=== PATIENT | male | born 1940 | race Caucasian/White ===

== ENCOUNTER 2017-12-05 12:44 | Observation (INO) | payer MEDICARE ==
[~2017-12-05] VITALS: Ht 167.6 cm; Wt 82.0 kg
[~2017-12-05 12:44] MED LIST: ASPI81 PO; BACT800T5 PO; BUME1TAB PO; CALC.25 PO; CVS20TAB PO; FISH1000 PO; METO50CR PO; PERC10TA27 PO; PERI8.6T PO; PRAV20 PO; PYRI50TA PO
--- NOTE | 2017-12-05 13:14 | PD ---
HPI Chief Complaint: syncope Time Seen by Provider: 12:47 Travel History International Travel<30 days: No Contact w/Intl Traveler<30days: No Traveled to known affect area: No History of Present Illness HPI 77-year-old male that presents to the ED for evaluation of syncope via EVAC. Patient apparently had a syncopal episode today. Per report I was given and by patient is been feeling dizzy for the past 3 weeks. He apparently had a syncopal episode today. He states that for the most part has been doing okay. She does have a history of cardiac disease having had a CABG in the past as well as a pacemaker. Patient apparently was trying to walk into his couch and all he remembers is waking up on the floor. Apparently family witnessed this and called the ambulance. Patient denies any chest pain or shortness of breath. He denies any symptoms at this time. States he is feeling weak. Per patient he is never had this before. Per patient he does take blood thinners. No history of CVA. He follows with division supervisor Dr. Suggs. Denies any symptoms at this time. No abdominal pain. No blurred vision or double vision. No pain. Patient denies any symptoms preloading to the syncopal episode. Has an allergy to contrast sodium. PFSH Past Medical History Hx Anticoagulant Therapy: Yes Arthritis: Yes Asthma: No Autoimmune Disease: No Blood Disorders: No Anxiety: No Depression: No Heart Rhythm Problems: Yes (PACEMAKER) Cancer: No Cardiovascular Problems: Yes (HTN/PACEMAKER/ TRIPLE BYPASS) High Cholesterol: Yes Chest Pain: No Congestive Heart Failure: Yes (Previously was diuresed outpatient with Lasix) COPD: No Cerebrovascular Accident: No Diabetes: No Diminished Hearing: No Endocrine: No GERD: No Genitourinary: Yes (BLADDER INFECTION/RETENTION) Hiatal Hernia: No Hypertension: Yes Immune Disorder: No Implanted Vascular Access Dvce: Yes Kidney Stones: No Musculoskeletal: Yes Neurologic: Yes Psychiatric: No Reproductive: No Respiratory: Yes (recent left PNA) Migraines: No Renal Failure: Yes (Recent ARF due to sepsis; US negative for hydronephrosis) Seizures: No Sickle Cell Disease: No Sleep Apnea: No Thyroid Disease: No Ulcer: No Past Surgical History Abdominal Surgery: No AICD: No Arteriovenous Shunt: No Cardiac Surgery: Yes (TRIPLE BYPASS, PACEMAKER) Ear Surgery: No Endocrine Surgery: No Eye Surgery: Yes (CATARACTS) Genitourinary Surgery: No Gynecologic Surgery: No Insulin Pump: No Joint Replacement: No Oral Surgery: No Pacemaker: Yes Thoracic Surgery: No Other Surgery: Yes (BLADDER SURGERY) Social History Alcohol Use: No Tobacco Use: No Substance Use: No Allergies-Medications (Allergen,Severity, Reaction): Coded Allergies: Iodinated Contrast- Oral and IV Dye (Unverified Allergy, Severe, nausea, ) iodine (Unverified Allergy, Severe, n/v, 12/05/17) potassium iodide (Unverified Allergy, Severe, n/v, 12/05/17) povidone-iodine (Unverified Allergy, Severe, n/v, 12/05/17) shrimp (Unverified Allergy, Severe, n/v, 12/05/17) sodium iodide (Unverified Allergy, Severe, n/v, 12/05/17) sodium iodide (Unverified Allergy, Severe, n/v, 12/05/17) Reported Meds & Prescriptions Reported Meds & Active Scripts Active Reported Metoprolol Tartrate 25 Mg Tab 75 Mg PO BID Tamsulosin (Tamsulosin HCl) 0.4 Mg Cap 0.4 Mg PO DAILY Medrol (Methylprednisolone) 4 Mg Tab 4 Mg PO DAILY Bumetanide 1 Mg Tab 1 Mg PO DAILY Ramipril 2.5 Mg Cap 2.5 Mg PO DAILY Review of Systems Except as stated in HPI: all other systems reviewed are Neg Physical Exam Narrative GENERAL: SKIN: Warm and dry. HEAD: Atraumatic. Normocephalic. EYES: Pupils equal and round. No scleral icterus. No injection or drainage. ENT: No nasal bleeding or discharge. Mucous membranes pink and moist. Tongue is midline. No uvula deviation. NECK: Trachea midline. No JVD. CARDIOVASCULAR: Regular rate and rhythm. No murmurs, S3, S4. Patient does have what appears to be a pacemaker on the left chest as well as some surgical scar on the chest. RESPIRATORY: No accessory muscle use. Clear to auscultation. Breath sounds equal bilaterally. GASTROINTESTINAL: Abdomen soft, non-tender, nondistended. Hepatic and splenic margins not palpable. MUSCULOSKELETAL: Extremities without clubbing, cyanosis, or edema. No obvious deformities. Full range of motion of the upper and lower extremities bilaterally. 2+ pulses bilaterally. Sensation intact bilaterally. NEUROLOGICAL: Awake and alert. No obvious cranial nerve deficits. Motor grossly within normal limits. Five out of 5 muscle strength in the arms and legs. Normal speech. PSYCHIATRIC: Appropriate mood and affect; insight and judgment normal. Data Data Last Documented VS Vital Signs Date Time Temp Pulse Resp B/P (MAP) Pulse Ox O2 Delivery O2 Flow Rate FiO2 12/05/17 14:33 78 16 150/62 (91) 95 20 131/60 (83) 92 20 129/58 (81) 12/05/17 13:42 100.6 97 Room Air Orders Orders Electrocardiogram (12/05/17 12:54) Complete Blood Count With Diff (12/05/17 12:54) Comprehensive Metabolic Panel (12/05/17 12:54) Ckmb (Isoenzyme) Profile (12/05/17 12:54) Troponin I (12/05/17 12:54) B-Type Natriuretic Peptide (12/05/17 12:54) Prothrombin Time / Inr (Pt) (12/05/17 12:54) Act Partial Throm Time (Ptt) (12/05/17 12:54) Urinalysis - C+S If Indicated (12/05/17 12:54) Magnesium (Mg) (12/05/17 12:54) Thyroid Stimulating Hormone (12/05/17 12:54) Chest, Single Ap (12/05/17 12:54) Ct Brain W/O Iv Contrast(Rout) (12/05/17 12:54) Iv Access Insert/Monitor (12/05/17 12:54) Ecg Monitoring (12/05/17 12:54) Oximetry (12/05/17 12:54) Orthostatic Vital Signs (12/05/17 13:06) Urine Culture (12/05/17 13:20) Acetaminophen (Tylenol) (12/05/17 14:45) Ceftriaxone Inj (Rocephin Inj) (12/05/17 14:45) Sodium Chlorid 0.9% 500 Ml Inj (Ns 500 M (12/05/17 14:45) Admit Order (Ed Use Only) (12/05/17 14:55) Labs Laboratory Tests Test 12/05/17 13:20 White Blood Count 9.5 TH/MM3 Red Blood Count 4.65 MIL/MM3 Hemoglobin 14.1 GM/DL Hematocrit 41.4 % Mean Corpuscular Volume 89.0 FL Mean Corpuscular Hemoglobin 30.3 PG Mean Corpuscular Hemoglobin Concent 34.0 % Red Cell Distribution Width 15.5 % Platelet Count 181 TH/MM3 Mean Platelet Volume 7.0 FL Neutrophils (%) (Auto) 87.4 % Lymphocytes (%) (Auto) 5.4 % Monocytes (%) (Auto) 7.0 % Eosinophils (%) (Auto) 0.0 % Basophils (%) (Auto) 0.2 % Neutrophils # (Auto) 8.3 TH/MM3 Lymphocytes # (Auto) 0.5 TH/MM3 Monocytes # (Auto) 0.7 TH/MM3 Eosinophils # (Auto) 0.0 TH/MM3 Basophils # (Auto) 0.0 TH/MM3 CBC Comment DIFF FINAL Differential Comment Prothrombin Time 10.7 SEC Prothromb Time International Ratio 1.1 RATIO Activated Partial Thromboplast Time 23.2 SEC Urine Color YELLOW Urine Turbidity HAZY Urine pH 6.0 Urine Specific [place] 1.009 Urine Protein NEG mg/dL Urine Glucose (UA) NEG mg/dL Urine Ketones NEG mg/dL Urine Occult Blood SMALL Urine Nitrite NEG Urine Bilirubin NEG Urine Urobilinogen LESS THAN 2 mg/dL Urine Leukocyte Esterase LARGE Urine RBC 4 /hpf Urine WBC 118 /hpf Urine Bacteria RARE /hpf Microscopic Urinalysis Comment CULTURE INDICATED Blood Urea Nitrogen 30 MG/DL Creatinine 1.91 MG/DL Random Glucose 107 MG/DL Total Protein 6.9 GM/DL Albumin 3.2 GM/DL Calcium Level 8.3 MG/DL Magnesium Level 2.1 MG/DL Alkaline Phosphatase 54 U/L Aspartate Amino Transf (AST/SGOT) 21 U/L Alanine Aminotransferase (ALT/SGPT) 21 U/L Total Bilirubin 0.7 MG/DL Sodium Level 141 MEQ/L Potassium Level 3.9 MEQ/L Chloride Level 105 MEQ/L Carbon Dioxide Level 27.0 MEQ/L Anion Gap 9 MEQ/L Estimat Glomerular Filtration Rate 34 ML/MIN Total Creatine Kinase 67 U/L Troponin I LESS THAN 0.02 NG/ML B-Type Natriuretic Peptide 266 PG/ML Thyroid Stimulating Hormone 3rd Gen 0.766 uIU/ML MDM Medical Decision Making Medical Screen Exam Complete: Yes Emergency Medical Condition: Yes Medical Record Reviewed: Yes Interpretation(s) CBC & BMP Diagram 12/05/17 13:20 Total Protein 6.9, Albumin 3.2 L, Calcium Level 8.3 L, Magnesium Level 2.1, Alkaline Phosphatase 54, Aspartate Amino Transf (AST/SGOT) 21, Alanine Aminotransferase (ALT/SGPT) 21, Total Bilirubin 0.7 EKG show paced rhythm. No sign of acute ischemia and arrhythmia. Troponin and CK-MB negative. Last Impressions Head CT 12/05/17 1254 Signed Impressions: CONCLUSION: 1. No acute findings. Cortical volume loss. Chest X-Ray 12/05/17 1254 Signed Impressions: CONCLUSION: Minimal basilar atelectasis or scarring. Differential Diagnosis Syncope versus presyncope versus CAD versus CVA versus orthostatic hypotension versus dizziness versus weakness Narrative Course 77-year-old male the presents to the ED for evaluation of syncope. Patient was properly examined and was found to have signs and symptoms consistent with appears to be syncope. Labs and imaging order. Pacemaker will be interrogated. labs and imaging showed no sign of acute disease alert and what appears to be possible UTI and orthostatic hypotension with a 20 point change. Patient is symptomatic with standing. Unclear etiology but it could be related to infection. At this time patient will start ceftriaxone. Given a 500 bolus of fluid patient does have some history of CHF and given to much fluid could cause other issues. He was given Tylenol for his slight fever that was found to be this year. Case discussed with my attending Dr. Caicedo who agrees with admission. Patient was admitted to the residents after the agreed to admission. Diagnosis Primary Impression: Syncope, near Additional Impression: UTI (urinary tract infection) Qualified Codes: N30.01 - Acute cystitis with hematuria Admitting Information Admitting Physician Requests: Jhonathan Hill Dec 05, 2017 13:14
[2017-12-05 13:30] LABS: AUTOMATED NEUTROPHIL # 8.3 TH/MM3 (1.8-7.7); BASOPHIL % 0.2 % (0.0-2.0); HEMATOCRIT 41.4 % (39.0-51.0); HEMOGLOBIN 14.1 GM/DL (13.0-17.0); LYMPH % 5.4 % (9.0-44.0); LYMPHOCYTE # 0.5 TH/MM3 (1.0-4.8); MEAN CORPUSCULAR HEMOGLOBIN 30.3 PG (27.0-34.0); MONOCYTE # 0.7 TH/MM3 (0-0.9); NEUT % 87.4 % (16.0-70.0); PLATELET COUNT 181 TH/MM3 (150-450); RED BLOOD COUNT 4.65 MIL/MM3 (4.50-5.90); RED CELL DISTRIBUTION WIDTH 15.5 % (11.6-17.2); WHITE BLOOD COUNT 9.5 TH/MM3 (4.0-11.0)
[2017-12-05 13:40] LABS: INTERNATIONAL NORMALIZED RATIO 1.1 RATIO; PROTHROMBIN TIME - PATIENT 10.7 SEC (9.8-11.6)
[2017-12-05 13:42] VITALS: BP 131/60; PULSE 73; RESP 20; TEMP 100.6; O2SAT 97
[2017-12-05 13:44] LABS: BACTERIA, URINE RARE /hpf; BILIRUBIN, URINE NEG (NEG); BLOOD, URINE SMALL (NEG); GLUCOSE,URINE NEG (NEG); KETONE, URINE NEG (NEG); NITRITE,URINE NEG (NEG); URINE COLOR YELLOW (YELLW/STRAW); URINE LEUKOCYTE ESTERASE LARGE (NEG)
--- NOTE | 2017-12-05 13:49 | RADRPT ---
EXAM DATE: 12/05/2017 1:44 PM EDT AGE/SEX: 77 years / Male INDICATIONS: Syncope. CLINICAL DATA: This is the patient's initial encounter. Patient reports that signs and symptoms have been present for 1 day and indicates a pain score of 0/10. MEDICAL/SURGICAL HISTORY: . CABG Pacemaker. [place] [facility] [place] . FINDINGS: Minimal basilar atelectasis or scarring. No effusion. No pneumothorax. Heart size within normal limit s. Previous sternotomy. Pacer leads overlie right atrium and right ventricle. CONCLUSION: Minimal basilar atelectasis or scarring. Electronically signed by: Carlos White MD 12/05/2017 1:48 PM EDT
[2017-12-05 13:52] LABS: ALBUMIN 3.2 GM/DL (3.4-5.0); ALT (GPT) 21 U/L (12-78); AST (GOT) 21 U/L (15-37); BLOOD UREA NITROGEN 30 MG/DL (7-18); CALCIUM 8.3 MG/DL (8.5-10.1); CHLORIDE 105 MEQ/L (98-107); CREATININE 1.91 MG/DL (0.60-1.30); GLOMERULAR FILTRATION RATE 34 ML/MIN (>89); GLUCOSE,RANDOM 107 MG/DL (74-106); MAGNESIUM 2.1 MG/DL (1.5-2.5); SODIUM (NA) 141 MEQ/L (136-145)
[2017-12-05] MEDS ORDERED: MEDR4TAB PO (13:53)
[2017-12-05] MEDS ORDERED: BUME1TAB PO (13:53)
[2017-12-05] MEDS ORDERED: TAMS0.4C4 PO (13:53)
[2017-12-05] MEDS ORDERED: RAMI2.5C PO (13:53)
[2017-12-05] MEDS ORDERED: METO25TA3 PO (13:53)
[2017-12-05 14:02] LABS: ALKALINE PHOSPHATASE 54 U/L (45-117); TOTAL BILIRUBIN ADULT 0.7 MG/DL (0.2-1.0); TOTAL PROTEIN 6.9 GM/DL (6.4-8.2); TROPONIN I LESS THAN 0.02 NG/ML (0.02-0.05)
[2017-12-05 14:33] VITALS: BP_SYST 129; BP_SYST 131; BP_SYST 150; BP_DIAS 58; BP_DIAS 60; BP_DIAS 62; RESP 16; RESP 20
--- NOTE | 2017-12-05 14:35 | RADRPT ---
EXAM DATE: 12/05/2017 2:11 PM EDT AGE/SEX: 77 years / Male INDICATIONS: Syncope. CLINICAL DATA: This is the patient's initial encounter. Patient reports that signs and symptoms have been present for 1 day and indicates a pain score of 5/10. MEDICAL/SURGICAL HISTORY: Deep venous thrombosis. Congestive heart failure. Cardiovascular diseas e. None. RADIATION DOSE: 56.35 CTDI (mGy) COMPARISON: [facility] [place] 03/31/2015. . TECHNIQUE: CT of the head without contrast. Using automated exposure control and adjustment of the mA and/or kV according to patient size, radiation dose was kept as low as reasonably achievable to ob tain optimal diagnostic quality images. FINDINGS: Cerebrum: The ventricles are normal for age. No evidence of midline shift, mass lesion, hemorrhage or acute infarction. No extraaxial fluid collections are seen. Posterior Fossa: The cerebellum and brainstem are intact. The 4th ventricle is midline. The cerebe llopontine angle is unremarkable. Extracranial: The visualized portion of the orbits is intact. Skull: The calvaria is intact. No evidence of skull fracture. CONCLUSION: 1. No acute findings. Cortical volume loss. Electronically signed by: Carlos White MD 12/05/2017 2:34 PM EDT
[2017-12-05] MEDS ORDERED: SODIUM CHLORID 0.9% 500 ML INJ 500 ML IV ONE (14:45)
[2017-12-05] MEDS ORDERED: cefTRIAXone INJ 1,000 MG in SODIUM CHLORIDE 0.9% INJ 100 ML IV ONE (14:45)
[2017-12-05] MEDS ORDERED: ACETAMINOPHEN 325 MG TAB PO ONE (14:45)
--- NOTE | 2017-12-05 15:15 | HHI.HP ---
[facility] Service Family Medicine Primary Care Physician Rohini Lyles MD Admission Diagnosis acute syncope, UTI Diagnoses: International Travel<30 Days: No Contact w/Intl Traveler<30days: No Known Affected Area: No History of Present Illness Mr. Mcleod is a 77-year-old male presenting to the ED after syncopal event. Patient reports that he was walking from his kitchen to sit down in his living room when he became very dizzy. He then fell forward onto his knees and his outstretched arms without losing consciousness. He then will slowly lowered himself to the ground and was lying on his stomach with full consciousness. He was with his family who saw the event and immediately called 911 after they were unable to lift him to get into a chair. Patient reports no loss consciousness or residual pain from his fall and his arms/knees/head. Patient states that he is felt dizzy over the last 2-3 days with intermittent chills. Patient does have a history of CHF, CAD with CABG, and carotid disease per chart review. He has no other acute complaints at this time. Patient states he has been compliant with his medications. His PCP per chart review is Dr. Morris. Of note, patient presenting with granddaughter who is unaware of specifics of his past medical history. However, she does report that her family checks on him daily as he lives alone. They assist him with some of his ADLs including finances, grocery shopping, and surveying his medication intake. (Hitesh Clements MD R2) Review of Systems Constitutional: COMPLAINS OF: Chills, Dizziness, DENIES: Fever Eyes: DENIES: Blurred vision, Diplopia, Vision loss, Double Vision Ears, nose, mouth, throat: COMPLAINS OF: Running Nose, DENIES: Throat pain Respiratory: DENIES: Cough, Sputum production, Shortness of breath Cardiovascular: COMPLAINS OF: Syncope, DENIES: Chest pain, Dyspnea on Exertion Gastrointestinal: DENIES: Abdominal pain, Diarrhea, Nausea, Vomiting Genitourinary: DENIES: Hematuria, Dysuria Musculoskeletal: DENIES: Joint pain, Muscle aches Integumentary: DENIES: Rash Hematologic/lymphatic: DENIES: Lymphadenopathy Immunologic/allergic: DENIES: Urticaria Neurologic: DENIES: Headache Psychiatric: DENIES: Mood changes (Hitesh Clements MD R2) Past Family Social History Past Medical History Per chart review: CAD carotid artery disease hypertension dyslipidemia CHF Past Surgical History Per chart review: CABG endarterectomy pacemaker placement (Hitesh Clements MD R2) Allergies: Coded Allergies: Iodinated Contrast- Oral and IV Dye (Unverified Allergy, Severe, nausea, ) iodine (Unverified Allergy, Severe, n/v, 12/05/17) potassium iodide (Unverified Allergy, Severe, n/v, 12/05/17) povidone-iodine (Unverified Allergy, Severe, n/v, 12/05/17) shrimp (Unverified Allergy, Severe, n/v, 12/05/17) sodium iodide (Unverified Allergy, Severe, n/v, 12/05/17) sodium iodide (Unverified Allergy, Severe, n/v, 12/05/17) Family History Alcoholism, Tobacco Abuse, COPD Reports no other history Social History Patient lives alone. Patient presents with Granddaughter. Tobacco - No reported history, prior history of chewing tobacco, quit >10 years ago Alcohol - No alcoholic beverages in 23 years, prior use Illicit - No reported history. (Hitesh Clements MD R2) Physical Exam Vital Signs Vital Signs Date Time Temp Pulse Resp B/P (MAP) Pulse Ox O2 Delivery O2 Flow Rate FiO2 12/05/17 14:33 78 16 150/62 (91) 95 20 131/60 (83) 92 20 129/58 (81) 12/05/17 13:42 100.6 73 20 131/60 (83) 97 Room Air Physical Exam GENERAL: Elderly male lying in bed in no acute distress. SKIN: Cool and dry. No rash. Senile purpura. CABG surgical scars appreciated along the sternum. Pacemaker palpated in the left upper chest. HEENT: Atraumatic, normocephalic with extraocular motions intact. Oropharynx clear. No rhinorrhea. No palpable LAD, JVD, or thyroid abnormality appreciated. CARDIOVASCULAR: Regular rate and rhythm without obvious murmurs, gallops, or rubs. 2+ pulses in all four extremities. RESPIRATORY: Clear to auscultation bilaterally with no crackles, wheezes, or rhonchi. No increased work of breathing. GASTROINTESTINAL: Abdomen soft, non-tender, nondistended with positive bowel sounds. No masses appreciated. MUSCULOSKELETAL: No cyanosis or edema. No calf tenderness. Ambulating without assistance per report. NEURO/PSYCH: Afocal. Awake, alert, and oriented x3. Normal speech and judgement. Laboratory Laboratory Tests Test 12/05/17 13:20 White Blood Count 9.5 Red Blood Count 4.65 Hemoglobin 14.1 Hematocrit 41.4 Mean Corpuscular Volume 89.0 Mean Corpuscular Hemoglobin 30.3 Mean Corpuscular Hemoglobin Concent 34.0 Red Cell Distribution Width 15.5 Platelet Count 181 Mean Platelet Volume 7.0 Neutrophils (%) (Auto) 87.4 Lymphocytes (%) (Auto) 5.4 Monocytes (%) (Auto) 7.0 Eosinophils (%) (Auto) 0.0 Basophils (%) (Auto) 0.2 Neutrophils # (Auto) 8.3 Lymphocytes # (Auto) 0.5 Monocytes # (Auto) 0.7 Eosinophils # (Auto) 0.0 Basophils # (Auto) 0.0 CBC Comment DIFF FINAL Differential Comment Prothrombin Time 10.7 Prothromb Time International Ratio 1.1 Activated Partial Thromboplast Time 23.2 Urine Color YELLOW Urine Turbidity HAZY Urine pH 6.0 Urine Specific Industry 1.009 Urine Protein NEG Urine Glucose (UA) NEG Urine Ketones NEG Urine Occult Blood SMALL Urine Nitrite NEG Urine Bilirubin NEG Urine Urobilinogen LESS THAN 2 Urine Leukocyte Esterase LARGE Urine RBC 4 Urine WBC 118 Urine Bacteria RARE Microscopic Urinalysis Comment CULTURE INDICATED Blood Urea Nitrogen 30 Creatinine 1.91 Random Glucose 107 Total Protein 6.9 Albumin 3.2 Calcium Level 8.3 Magnesium Level 2.1 Alkaline Phosphatase 54 Aspartate Amino Transf (AST/SGOT) 21 Alanine Aminotransferase (ALT/SGPT) 21 Total Bilirubin 0.7 Sodium Level 141 Potassium Level 3.9 Chloride Level 105 Carbon Dioxide Level 27.0 Anion Gap 9 Estimat Glomerular Filtration Rate 34 Total Creatine Kinase 67 Troponin I LESS THAN 0.02 B-Type Natriuretic Peptide 266 Thyroid Stimulating Hormone 3rd Gen 0.766 Date/Time Source Procedure Growth Status 12/05/17 13:20 Urine Clean Catch Urine Culture Pending Received (Hitesh Clements MD R2) Result Diagram: 12/05/17 1320 12/05/17 1320 Imaging Last [address] 12/05/17 1254 Signed Impressions: CONCLUSION: 1. No acute findings. Cortical volume loss. Chest X-Ray 12/05/17 1254 Signed Impressions: CONCLUSION: Minimal basilar atelectasis or scarring. (Hitesh Clements MD R2) Caprini VTE Risk Assessment Caprini VTE Risk Assessment: Mod/High Risk (score >= 2) Caprini Risk Assessment Model Point Value = 1 Point Value = 2 Point Value = 3 Point Value = 5 Age 41-60 Minor surgery BMI > 25 kg/m2 Swollen legs Varicose veins or History of unexplained or recurrent spontaneous Oral contraceptives or hormone replacement Sepsis (< 1 month) Serious lung disease, including pneumonia (< 1 month) Abnormal pulmonary function Acute myocardial infarction Congestive heart failure (< 1 month) History of inflammatory bowel disease Medical patient at bed rest Age 61-74 Arthroscopic surgery Major open surgery (> 45 min) Laparoscopic surgery (> 45 min) Malignancy Confined to bed (> 72 hours) Immobilizing plaster cast Central venous access Age >= 75 History of VTE Family history of VTE Factor V Leiden Prothrombin [id number] Lupus anticoagulant Anticardiolipin antibodies Elevated serum homocysteine Heparin-induced thrombocytopenia Other congenital or acquired thrombophilia Stroke (< 1 month) Elective arthroplasty Hip, pelvis, or leg fracture Acute spinal cord injury (< 1 month) Prophylaxis Regimen Total Risk Factor Score Risk Level Prophylaxis Regimen 0-1 Low Early ambulation 2 Moderate Order ONE of the following: *Sequential Compression Device (SCD) *Heparin 5000 units SQ BID 3-4 Higher Order ONE of the following medications: *Heparin 5000 units SQ TID *Enoxaparin/Lovenox 40 mg SQ daily (WT < 150 kg, CrCl > 30 mL/min) *Enoxaparin/Lovenox 30 mg SQ daily (WT < 150 kg, CrCl > 10-29 mL/min) *Enoxaparin/Lovenox 30 mg SQ BID (WT < 150 kg, CrCl > 30 mL/min) AND/OR *Sequential Compression Device (SCD) 5 or more Highest Order ONE of the following medications: *Heparin 5000 units SQ TID (Preferred with Epidurals) *Enoxaparin/Lovenox 40 mg SQ daily (WT < 150 kg, CrCl > 30 mL/min) *Enoxaparin/Lovenox 30 mg SQ daily (WT < 150 kg, CrCl > 10-29 mL/min) *Enoxaparin/Lovenox 30 mg SQ BID (WT < 150 kg, CrCl > 30 mL/min) AND *Sequential Compression Device (SCD) (Hitesh Clements MD R2) Assessment and Plan Assessment and Plan Mr. Mcleod is an 77-year-old male presenting with syncope secondary to UTI with dehydration. Code Status FULL CODE Discussed Condition With SAMY De La Fuente PA (Hitesh Clements MD R2) Attending Attestation Patient seen and examined. Case reviewed and discussed with the resident team. Agree with plan of care as discussed with me and documented in the resident note. pt seen on admission in ED. (Jany Koehler MD) Problem List: (1) UTI (urinary tract infection) ICD Codes: N39.0 - Urinary tract infection, site not specified Status: Acute Plan: Patient presenting with presyncopal episode and fever found to have suspected UTI. Patient currently does not meet SIRS/sepsis criteria. -CBC: WBC 9.5 with 87% neutrophils -CMP: Creatinine 1.91 (baseline per chart review approximately 2.0), BUN 30, otherwise negative -UA: Hazy, small occult blood, large leukocyte esterase, 4 RBC, 118 WBC with rare bacteria -Blood cultures drawn after ceftriaxone administered: Pending -Urine culture: Pending Medications: -Patient given 500 mL normal saline bolus and ceftriaxone 1 g in ED -Continue ceftriaxone 1 g daily for UTI with fever -Normal saline at 40 mL/h as patient is tolerating oral fluids and has history of CHF (2) Syncope, near ICD Codes: R55 - Syncope and collapse Status: Acute Plan: Presyncope likely secondary to urinary tract infection as above. Patient also found to have orthostatic hypotension likely secondary to dehydration. -Head CT: No acute findings with cortical volume loss -CBC, CMP, UA as above -TSH 0.766 (within normal limits) -UDS: Negative -Orthostatic vital signs with a greater than 20 mmHg drop from supine to standing -Echocardiogram ordered -Carotid ultrasound ordered Medications: -Normal saline at 40 mL/h as patient has history of CHF and is tolerating oral fluids (3) Renal insufficiency ICD Codes: N28.9 - Disorder of kidney and ureter, unspecified Status: Chronic Plan: Patient with history of renal insufficiency per chart review -CMP: Creatinine 1.91 (baseline approximately 2.0 per chart review) BUN 30, otherwise within normal limits -Continue to monitor with CMP/BMP -Monitor for nephrotoxic medications Medications: -Normal saline at 40 mL/h this patient has history of CHF and is tolerating oral fluids (4) History of carotid endarterectomy ICD Codes: Z98.890 - Other specified postprocedural states Status: Chronic Plan: Patient with history of left carotid endarterectomy -Repeat carotid ultrasound ordered (5) CAD (coronary artery disease) ICD Codes: I25.10 - Atherosclerotic heart disease of [place] coronary artery without angina pectoris Status: Chronic Plan: Patient with coronary artery disease S/P CABG with pacemaker in place -EKG: Ventricular paced rhythm of 78 bpm. No interval abnormalities. No acute ST elevation/depression's. (Per medical team read) -Echocardiogram ordered -Carotid ultrasound ordered Medications: -Continue home metoprolol, ramipril, and bumetanide (6) History of coronary artery bypass graft ICD Codes: Z95.1 - Presence of aortocoronary bypass graft Status: Chronic Plan: Patient with history of CABG -Please see plan as above review (7) BPH (benign prostatic hyperplasia) ICD Codes: N40.0 - Benign prostatic hyperplasia without lower urinary tract symptoms Status: Chronic Plan: Patient with history of BPH per chart review Medications: -Continue home tamsulosin (8) Nutrition, metabolism, and development symptoms ICD Codes: R63.8 - Other symptoms and signs concerning food and fluid intake Status: Acute Plan: -Fluids: Normal saline at 40 mL/h as patient is tolerating oral fluids and has a history of CHF -Diet: Heart healthy diet with salt and fluid restriction due to CHF -Electrolytes: Within normal limits, continue to monitor -Prophylaxis: Clonidine as needed for blood pressure greater than 180/110, DuoNeb's as needed for shortness of breath/wheezing, Zofran as needed for nausea /vomiting, Tylenol as needed for pain/headache, constipation protocol in place -Home medications: Medical team unaware of reason patient is on methylprednisolone daily. Medical team to attempt to contact family for further clarification. As patient states he takes this medication daily, we will continue at this time. (9) DVT prophylaxis Status: Acute Plan: -SCDs Medication: -Heparin 5000 units every 8 hours (Hitesh Clements MD R2) Problem Qualifiers (1) UTI (urinary tract infection): Qualified Codes: N30.00 - Acute cystitis without hematuria (2) CAD (coronary artery disease): Qualified Codes: I25.810 - Atherosclerosis of coronary artery bypass graft(s) without angina pectoris (3) BPH (benign prostatic hyperplasia): Qualified Codes: N40.0 - Benign prostatic hyperplasia without lower urinary tract symptoms Hitesh Clements MD R2 Dec 05, 2017 15:15 Jany Koehler MD Dec 06, 2017 16:13
[2017-12-05] MEDS ORDERED: BISACODYL 10 MG SUPP RECTAL PRN (15:30)
[2017-12-05] MEDS ORDERED: MAGNESIUM HYDROXIDE SUSP 30 ML CUP PO PRN (15:30)
[2017-12-05] MEDS ORDERED: DOCUSATE SODIUM 50 MG/SENNA 8.6 MG TAB PO PRN (15:30)
[2017-12-05] MEDS ORDERED: SODIUM CHLORIDE 0.9% FLUSH 10 ML FLUSH IV FLUSH PRN (15:30)
[2017-12-05] MEDS ORDERED: SENNOSIDES 8.6 MG TAB PO PRN (15:30)
[2017-12-05] MEDS ORDERED: ACETAMINOPHEN 325 MG TAB PO PRN (15:30)
[2017-12-05] MEDS ORDERED: ONDANSETRON ODT 4 MG TAB PO PRN (16:00)
[2017-12-05] MEDS: HEPARIN SODIUM - SQ 10,000 UNITS/ML VIAL SQ SCH ×2 (16:34→22:02)
[2017-12-05] MEDS: SODIUM CHLOR 0.9% 1000 ML INJ 1,000 ML IV SCH (16:34)
[2017-12-05] MEDS ORDERED: RESP: ALBUTEROL 2.5 MG/IPRATROPIUM 0.5 MG NEB (PRN) NEB (17:30)
[2017-12-05] MEDS ORDERED: cloNIDine HCL 0.1 MG TAB PO PRN (17:30)
[2017-12-05 17:47] VITALS: BP 133/60; PULSE 68; RESP 20; TEMP 98.2; O2SAT 96
[2017-12-05 19:36] VITALS: PULSE 88
[2017-12-05 19:49] VITALS: BP 130/55; PULSE 84; RESP 18; TEMP 98.9; O2SAT 96
[2017-12-05] MEDS: METOPROLOL TARTRATE 25 MG TAB PO SCH (20:49)
[2017-12-05] MEDS: SODIUM CHLORIDE 0.9% FLUSH 10 ML FLUSH IV FLUSH SCH (20:50)
[2017-12-05 23:12] VITALS: BP 144/65; PULSE 97; RESP 18; TEMP 98.1; O2SAT 96
[2017-12-06] VITALS (10 sets, daily range): BP systolic 115–152; BP diastolic 55–62; PULSE 66–83; RESP 18–22; TEMP 97.9–98.7; O2SAT 95–98
[2017-12-06] MEDS: HEPARIN SODIUM - SQ 10,000 UNITS/ML VIAL SQ SCH ×2 (06:07→15:25)
[2017-12-06 07:10] LABS: AUTOMATED NEUTROPHIL # 6.4 TH/MM3 (1.8-7.7); BASOPHIL % 0.4 % (0.0-2.0); HEMATOCRIT 43.4 % (39.0-51.0); HEMOGLOBIN 14.6 GM/DL (13.0-17.0); LYMPH % 13.1 % (9.0-44.0); LYMPHOCYTE # 1.1 TH/MM3 (1.0-4.8); MEAN CELL VOLUME 89.3 FL (80.0-100.0); MEAN CORPUSCULAR HGB CONC 33.6 % (32.0-36.0); MEAN PLATELET VOLUME 7.1 FL (7.0-11.0); MONO % 7.2 % (0.0-8.0); MONOCYTE # 0.6 TH/MM3 (0-0.9); NEUT % 79.3 % (16.0-70.0); PLATELET COUNT 141 TH/MM3 (150-450); RED BLOOD COUNT 4.86 MIL/MM3 (4.50-5.90); RED CELL DISTRIBUTION WIDTH 15.7 % (11.6-17.2); WHITE BLOOD COUNT 8.1 TH/MM3 (4.0-11.0)
[2017-12-06 07:26] LABS: ALT (GPT) 29 U/L (12-78); AST (GOT) 39 U/L (15-37); BLOOD UREA NITROGEN 22 MG/DL (7-18); CALCIUM 8.3 MG/DL (8.5-10.1); CHLORIDE 108 MEQ/L (98-107); CHOLESTEROL 187 MG/DL (120-200); CREATININE 1.59 MG/DL (0.60-1.30); GLOMERULAR FILTRATION RATE 42 ML/MIN (>89); GLUCOSE,RANDOM 107 MG/DL (74-106); SODIUM (NA) 141 MEQ/L (136-145); TRIGLYCERIDES 202 MG/DL (42-150)
[2017-12-06 07:28] LABS: ALKALINE PHOSPHATASE 49 U/L (45-117); CHOLESTEROL/ HDL RATIO 5.26 RATIO; HDL CHOLESTEROL 35.5 MG/DL (40.0-60.0); LDL CHOLESTEROL 111 MG/DL (0-99); TOTAL BILIRUBIN ADULT 0.5 MG/DL (0.2-1.0); TOTAL PROTEIN 6.5 GM/DL (6.4-8.2)
--- NOTE | 2017-12-06 08:49 | RADRPT ---
EXAM DATE: 12/06/2017 8:44 AM EDT AGE/SEX: 77 years / Male INDICATIONS: Syncope. CLINICAL DATA: This is the patient's initial encounter. Patient reports that signs and symptoms have been present for 1 day and indicates a pain score of 0/10. MEDICAL/SURGICAL HISTORY: Hypertension. Congestive heart failure. Hypercholesterolemia. Sync ope. Right side numbness. Heart attack. Angina. Coronary artery disease. Anticoagulant therapy. Deep vein thrombosis. Bladder infection. Sepsis. Acute renal failure. . Pacemaker. Triple bypass. Left k nee scope. Bladder surgery. COMPARISON: No prior exams available for comparison. VELOCITY PARAMETERS: ICA/CCA Ratio: Right 1.6 , Left 1.1 ICA: Right 94 cm/sec, Left 60 cm/sec CCA: Right 60 cm/sec, Left 56 cm/sec ECA: Right 77 cm/sec, Left 63 cm/sec Vertebral: Right 47 cm/sec antegrade, Left 57 cm/sec antegrade FINDINGS: Right Carotid: There is moderate calcified and noncalcified plaque in the carotid bulb and proximal internal carotid artery. Left Carotid: There is mild atherosclerotic plaque within the common carotid artery and mild plaque within the carotid bulb and proximal internal carotid artery. Other: None. CONCLUSION: 1. Right Internal Carotid Artery: Findings indicate <50% stenosis. 2. Left Internal Carotid Artery: Findings indicate <50% stenosis. Electronically signed by: Trever Dan MD 12/06/2017 8:48 AM EDT
[2017-12-06] MEDS: BUMETANIDE 1 MG TAB PO SCH (09:52)
[2017-12-06] MEDS: TAMSULOSIN HCL 0.4 MG CAP PO SCH (09:52)
[2017-12-06] MEDS: RAMIPRIL 2.5 MG CAP PO SCH (09:52)
[2017-12-06] MEDS: methylPREDNISolone 4 MG TAB PO SCH (09:52)
[2017-12-06] MEDS: METOPROLOL TARTRATE 25 MG TAB PO SCH ×2 (09:53→22:45)
[2017-12-06] MEDS: SODIUM CHLORIDE 0.9% FLUSH 10 ML FLUSH IV FLUSH SCH ×2 (09:53→22:41)
--- NOTE | 2017-12-06 13:26 | EKG ---
Date Performed: 12/05/2017 Time Performed: 13:20:26 PTAGE: 77 years EKG: ELECTRONIC VENTRICULAR PACEMAKER ABNORMAL RHYTHM ECG PREVIOUS TRACING : 04/01/2015 08.43 Paced rhythm is new since prior tracing. DOCTOR: Cullen Del Real Interpretating Date/Time 12/06/2017 13:25:18
--- NOTE | 2017-12-06 13:50 | EKG ---
Date Performed: 12/05/2017 Time Performed: 20:38:51 PTAGE: 77 years EKG: ELECTRONIC VENTRICULAR PACEMAKER ABNORMAL RHYTHM ECG PREVIOUS TRACING : 12/05/2017 13.20 Since the previous tracing, no significant change noted DOCTOR: Cullen Del Real Interpretating Date/Time 12/06/2017 13:45:15
--- NOTE | 2017-12-06 13:51 | EKG ---
Date Performed: 12/06/2017 Time Performed: 01:18:28 PTAGE: 77 years EKG: ELECTRONIC VENTRICULAR PACEMAKER ABNORMAL RHYTHM ECG PREVIOUS TRACING : 12/05/2017 20.38 Since the previous tracing, no significant change noted DOCTOR: Cullen Del Real Interpretating Date/Time 12/06/2017 13:45:25
[2017-12-06] MEDS: cefTRIAXone INJ 1,000 MG in SODIUM CHLORIDE 0.9% INJ 100 ML IV SCH (15:25)
[2017-12-06] MEDS: SODIUM CHLOR 0.9% 1000 ML INJ 1,000 ML IV SCH (16:00)
--- NOTE | 2017-12-06 16:12 | HHI.HP ---
[facility] Service Family Medicine Primary Care Physician Rohini Lyles MD Admission Diagnosis acute syncope, UTI Diagnoses: (1) UTI (urinary tract infection) Diagnosis: Principal (2) Syncope, near Diagnosis: Principal (3) Renal insufficiency Diagnosis: Principal (4) History of carotid endarterectomy Diagnosis: Principal (5) CAD (coronary artery disease) Diagnosis: Principal (6) History of coronary artery bypass graft Diagnosis: Principal (7) BPH (benign prostatic hyperplasia) Diagnosis: Principal (8) Nutrition, metabolism, and development symptoms Diagnosis: Principal (9) DVT prophylaxis Diagnosis: Principal International Travel<30 Days: No Contact w/Intl Traveler<30days: No Known Affected Area: No History of Present Illness Mr. Mcleod is a 77-year-old male presenting to the ED after syncopal event. Patient reports that he was walking from his kitchen to sit down in his living room when he became very dizzy. He then fell forward onto his knees and his outstretched arms catching himself on a chair without losing consciousness. He then will slowly lowered himself to the ground and was lying on his stomach with full consciousness. He was with his family who saw the event and immediately called 911 after they were unable to lift him to get into a chair. Patient reports no loss consciousness or residual pain from his fall and his arms/knees/head. Patient states that he is felt dizzy over the last 2-3 days with intermittent chills. Patient does have a history of CHF, CAD with CABG, and carotid disease per chart review. He has no other acute complaints at this time. Patient states he has been compliant with his medications. His PCP per chart review is Dr. oMrris. Of note, patient presenting with granddaughter who is unaware of specifics of his past medical history. However, she does report that her family checks on him daily as he lives alone. They assist him with some of his ADLs including finances, grocery shopping, and surveying his medication intake. He was having chills but no fevers. He is very weak and has had some confusion related to his UTI. His pacemaker was interrogated and he had no ventricular arrythmias or shocking during his episode. Review of Systems Other Constitutional: COMPLAINS OF: Chills, Dizziness, DENIES: Fever Eyes: DENIES: Blurred vision, Diplopia, Vision loss, Double Vision Ears, nose, mouth, throat: COMPLAINS OF: Running Nose, DENIES: Throat pain Respiratory: DENIES: Cough, Sputum production, Shortness of breath Cardiovascular: COMPLAINS OF: Syncope, DENIES: Chest pain, Dyspnea on Exertion Gastrointestinal: DENIES: Abdominal pain, Diarrhea, Nausea, Vomiting Genitourinary: DENIES: Hematuria, Dysuria Musculoskeletal: DENIES: Joint pain, Muscle aches Integumentary: DENIES: Rash Hematologic/lymphatic: DENIES: Lymphadenopathy Immunologic/allergic: DENIES: Urticaria Neurologic: DENIES: Headache Psychiatric: DENIES: Mood changes Past Family Social History Past Medical History Per chart review: CAD carotid artery disease hypertension dyslipidemia CHF Past Surgical History Per chart review: CABG endarterectomy pacemaker placement Allergies: Coded Allergies: Iodinated Contrast- Oral and IV Dye (Unverified Allergy, Severe, nausea, ) iodine (Unverified Allergy, Severe, n/v, 12/05/17) potassium iodide (Unverified Allergy, Severe, n/v, 12/05/17) povidone-iodine (Unverified Allergy, Severe, n/v, 12/05/17) shrimp (Unverified Allergy, Severe, n/v, 12/05/17) sodium iodide (Unverified Allergy, Severe, n/v, 12/05/17) sodium iodide (Unverified Allergy, Severe, n/v, 12/05/17) Family History Alcoholism quit years ago per daughter, Tobacco Abuse, COPD Reports no other history Social History Patient lives alone. Patient presented with Granddaughter. other family is nearby Tobacco - No reported history, prior history of chewing tobacco, quit >10 years ago Alcohol - No alcoholic beverages in 23 years, prior use Illicit - No reported history. Physical Exam Vital Signs Vital Signs Date Time Temp Pulse Resp B/P (MAP) Pulse Ox O2 Delivery O2 Flow Rate FiO2 12/06/17 11:51 98.4 68 20 138/60 (86) 98 12/06/17 08:22 98.2 70 20 132/60 (84) 98 12/06/17 07:39 96 21 12/06/17 03:26 97.9 82 18 132/60 (84) 96 12/06/17 00:59 83 12/06/17 00:46 21 12/05/17 23:12 98.1 97 18 144/65 (91) 96 12/05/17 19:49 98.9 84 18 130/55 (80) 96 12/05/17 19:36 88 12/05/17 17:47 98.2 68 20 133/60 (84) 96 Physical Exam GENERAL: Elderly male lying in bed in no acute distress except for "feeling weak and bad generally" and having intermittent chills SKIN: Cool and dry. No rash. Senile purpura. CABG surgical scars appreciated along the sternum. Pacemaker palpated in the left upper chest. HEENT: Atraumatic, normocephalic with extraocular motions intact. Oropharynx clear. No rhinorrhea. No palpable LAD, JVD, or thyroid abnormality appreciated. CARDIOVASCULAR: Regular rate and rhythm without obvious murmurs, gallops, or rubs. 2+ pulses in all four extremities. RESPIRATORY: Clear to auscultation bilaterally with no crackles, wheezes, or rhonchi. No increased work of breathing. GASTROINTESTINAL: Abdomen soft, non-tender, nondistended with positive bowel sounds. No masses appreciated. MUSCULOSKELETAL: No cyanosis or edema. No calf tenderness. Ambulating without assistance per report. NEURO/PSYCH: Afocal. Awake, alert, and oriented x3. Normal speech and judgement. Laboratory Laboratory Tests Test 12/05/17 19:25 12/06/17 01:11 12/06/17 06:30 Troponin I LESS THAN 0.02 LESS THAN 0.02 White Blood Count 8.1 Red Blood Count 4.86 Hemoglobin 14.6 Hematocrit 43.4 Mean Corpuscular Volume 89.3 Mean Corpuscular Hemoglobin 30.0 Mean Corpuscular Hemoglobin Concent 33.6 Red Cell Distribution Width 15.7 Platelet Count 141 Mean Platelet Volume 7.1 Neutrophils (%) (Auto) 79.3 Lymphocytes (%) (Auto) 13.1 Monocytes (%) (Auto) 7.2 Eosinophils (%) (Auto) 0.0 Basophils (%) (Auto) 0.4 Neutrophils # (Auto) 6.4 Lymphocytes # (Auto) 1.1 Monocytes # (Auto) 0.6 Eosinophils # (Auto) 0.0 Basophils # (Auto) 0.0 CBC Comment DIFF FINAL Differential Comment Blood Urea Nitrogen 22 Creatinine 1.59 Random Glucose 107 Total Protein 6.5 Albumin 3.0 Calcium Level 8.3 Alkaline Phosphatase 49 Aspartate Amino Transf (AST/SGOT) 39 Alanine Aminotransferase (ALT/SGPT) 29 Total Bilirubin 0.5 Sodium Level 141 Potassium Level 3.7 Chloride Level 108 Carbon Dioxide Level 23.0 Anion Gap 10 Estimat Glomerular Filtration Rate 42 Triglycerides Level 202 Cholesterol Level 187 LDL Cholesterol 111 HDL Cholesterol 35.5 Cholesterol/HDL Ratio 5.26 Date/Time Source Procedure Growth Status 12/05/17 16:02 Blood Peripheral Aerobic Blood Culture - Preliminary NO GROWTH IN 1 DAY Resulted 12/05/17 16:02 Blood Peripheral Anaerobic Blood Culture - Preliminary NO GROWTH IN 1 DAY Resulted 12/05/17 13:20 Urine Clean Catch Urine Culture Pending Received Result Diagram: 12/06/1730 12/06/17 0630 Imaging Last [address] 12/05/17 1254 Signed Impressions: CONCLUSION: 1. No acute findings. Cortical volume loss. Chest X-Ray 12/05/17 1254 Signed Impressions: CONCLUSION: Minimal basilar atelectasis or scarring. Caprini VTE Risk Assessment Caprini VTE Risk Assessment: Mod/High Risk (score >= 2) Caprini Risk Assessment Model Point Value = 1 Point Value = 2 Point Value = 3 Point Value = 5 Age 41-60 Minor surgery BMI > 25 kg/m2 Swollen legs Varicose veins or History of unexplained or recurrent spontaneous Oral contraceptives or hormone replacement Sepsis (< 1 month) Serious lung disease, including pneumonia (< 1 month) Abnormal pulmonary function Acute myocardial infarction Congestive heart failure (< 1 month) History of inflammatory bowel disease Medical patient at bed rest Age 61-74 Arthroscopic surgery Major open surgery (> 45 min) Laparoscopic surgery (> 45 min) Malignancy Confined to bed (> 72 hours) Immobilizing plaster cast Central venous access Age >= 75 History of VTE Family history of VTE Factor V Leiden Prothrombin [id number] Lupus anticoagulant Anticardiolipin antibodies Elevated serum homocysteine Heparin-induced thrombocytopenia Other congenital or acquired thrombophilia Stroke (< 1 month) Elective arthroplasty Hip, pelvis, or leg fracture Acute spinal cord injury (< 1 month) Prophylaxis Regimen Total Risk Factor Score Risk Level Prophylaxis Regimen 0-1 Low Early ambulation 2 Moderate Order ONE of the following: *Sequential Compression Device (SCD) *Heparin 5000 units SQ BID 3-4 Higher Order ONE of the following medications: *Heparin 5000 units SQ TID *Enoxaparin/Lovenox 40 mg SQ daily (WT < 150 kg, CrCl > 30 mL/min) *Enoxaparin/Lovenox 30 mg SQ daily (WT < 150 kg, CrCl > 10-29 mL/min) *Enoxaparin/Lovenox 30 mg SQ BID (WT < 150 kg, CrCl > 30 mL/min) AND/OR *Sequential Compression Device (SCD) 5 or more Highest Order ONE of the following medications: *Heparin 5000 units SQ TID (Preferred with Epidurals) *Enoxaparin/Lovenox 40 mg SQ daily (WT < 150 kg, CrCl > 30 mL/min) *Enoxaparin/Lovenox 30 mg SQ daily (WT < 150 kg, CrCl > 10-29 mL/min) *Enoxaparin/Lovenox 30 mg SQ BID (WT < 150 kg, CrCl > 30 mL/min) AND *Sequential Compression Device (SCD) Assessment and Plan Assessment and Plan Mr. Mcleod is an 77-year-old male presenting with syncope secondary to UTI with dehydration. Problem List: (1) UTI (urinary tract infection) ICD Codes: N39.0 - Urinary tract infection, site not specified Status: Acute Plan: Patient presenting with presyncopal episode and fever found to have suspected UTI. Patient currently does not meet SIRS/sepsis criteria. -CBC: WBC 9.5 with 87% neutrophils -CMP: Creatinine 1.91 (baseline per chart review approximately 2.0), BUN 30, otherwise negative -UA: Hazy, small occult blood, large leukocyte esterase, 4 RBC, 118 WBC with rare bacteria -Blood cultures drawn after ceftriaxone administered: Pending -Urine culture: Pending Medications: -Patient given 500 mL normal saline bolus and ceftriaxone 1 g in ED -Continue ceftriaxone 1 g daily for UTI with fever -Normal saline at 40 mL/h as patient is tolerating oral fluids and has history of CHF (2) Syncope, near ICD Codes: R55 - Syncope and collapse Status: Acute Plan: Presyncope likely secondary to urinary tract infection as above. Patient also found to have orthostatic hypotension likely secondary to dehydration. can decrease meds if orthostasis persists -Head CT: No acute findings with cortical volume loss -CBC, CMP, UA as above -TSH 0.766 (within normal limits) -UDS: Negative -Orthostatic vital signs with a greater than 20 mmHg drop from supine to standing -Echocardiogram ordered -Carotid ultrasound ordered Medications: -Normal saline at 40 mL/h as patient has history of CHF and is tolerating oral fluids (3) Renal insufficiency ICD Codes: N28.9 - Disorder of kidney and ureter, unspecified Status: Chronic Plan: Patient with history of renal insufficiency per chart review -CMP: Creatinine 1.91 (baseline approximately 2.0 per chart review) BUN 30, otherwise within normal limits -Continue to monitor with CMP/BMP -Monitor for nephrotoxic medications Medications: -Normal saline at 40 mL/h this patient has history of CHF and is tolerating oral fluids. this am he was vomiting so increasing fluids to 80 ccs for now (4) History of carotid endarterectomy ICD Codes: Z98.890 - Other specified postprocedural states Status: Chronic Plan: Patient with history of left carotid endarterectomy -Repeat carotid ultrasound ordered (5) CAD (coronary artery disease) ICD Codes: I25.10 - Atherosclerotic heart disease of [place] coronary artery without angina pectoris Status: Chronic Plan: Patient with coronary artery disease S/P CABG with pacemaker in place -EKG: Ventricular paced rhythm of 78 bpm. No interval abnormalities. No acute ST elevation/depression's. (Per medical team read) -Echocardiogram ordered -Carotid ultrasound ordered Medications: -Continue home metoprolol, ramipril, and bumetanide (6) History of coronary artery bypass graft ICD Codes: Z95.1 - Presence of aortocoronary bypass graft Status: Chronic Plan: Patient with history of CABG -Please see plan as above review (7) BPH (benign prostatic hyperplasia) ICD Codes: N40.0 - Benign prostatic hyperplasia without lower urinary tract symptoms Status: Chronic Plan: Patient with history of BPH per chart review Medications: -Continue home tamsulosin (8) Nutrition, metabolism, and development symptoms ICD Codes: R63.8 - Other symptoms and signs concerning food and fluid intake Status: Acute Plan: -Fluids: Normal saline at 80 mL/h -Diet: Heart healthy diet with salt and fluid restriction due to CHF -Electrolytes: Within normal limits, continue to monitor -Prophylaxis: Clonidine as needed for blood pressure greater than 180/110, DuoNeb's as needed for shortness of breath/wheezing, Zofran as needed for nausea /vomiting, Tylenol as needed for pain/headache, constipation protocol in place -Home medications: Medical team unaware of reason patient is on methylprednisolone daily. Medical team to attempt to contact family for further clarification. As patient states he takes this medication daily, we will continue at this time. (9) DVT prophylaxis Status: Acute Plan: -SCDs Medication: -Heparin 5000 units every 8 hours Problem Qualifiers (1) UTI (urinary tract infection): Qualified Codes: N30.00 - Acute cystitis without hematuria (2) CAD (coronary artery disease): Qualified Codes: I25.810 - Atherosclerosis of coronary artery bypass graft(s) without angina pectoris (3) BPH (benign prostatic hyperplasia): Qualified Codes: N40.0 - Benign prostatic hyperplasia without lower urinary tract symptoms Jany Koehler MD Dec 06, 2017 16:12
[2017-12-07] VITALS (10 sets, daily range): BP systolic 100–152; BP diastolic 49–69; PULSE 63–85; RESP 17–20; TEMP 98.2–99.8; O2SAT 96–98
[2017-12-07] MEDS: HEPARIN SODIUM - SQ 10,000 UNITS/ML VIAL SQ SCH ×4 (00:02→21:12)
[2017-12-07] MEDS: BUMETANIDE 1 MG TAB PO SCH (08:37)
[2017-12-07] MEDS: METOPROLOL TARTRATE 25 MG TAB PO SCH ×2 (08:37→21:13)
[2017-12-07] MEDS: methylPREDNISolone 4 MG TAB PO SCH (08:37)
[2017-12-07] MEDS: SODIUM CHLORIDE 0.9% FLUSH 10 ML FLUSH IV FLUSH SCH ×2 (08:38→21:13)
[2017-12-07] MEDS: TAMSULOSIN HCL 0.4 MG CAP PO SCH (08:38)
[2017-12-07] MEDS: RAMIPRIL 2.5 MG CAP PO SCH (08:38)
[2017-12-07 09:11] LABS: HEMATOCRIT 41.4 % (39.0-51.0); MEAN CELL VOLUME 88.4 FL (80.0-100.0); MEAN CORPUSCULAR HEMOGLOBIN 29.9 PG (27.0-34.0); MEAN CORPUSCULAR HGB CONC 33.8 % (32.0-36.0); MEAN PLATELET VOLUME 7.7 FL (7.0-11.0); PLATELET COUNT 133 TH/MM3 (150-450); RED BLOOD COUNT 4.68 MIL/MM3 (4.50-5.90); RED CELL DISTRIBUTION WIDTH 15.4 % (11.6-17.2); WHITE BLOOD COUNT 6.6 TH/MM3 (4.0-11.0)
[2017-12-07 09:19] LABS: INTERNATIONAL NORMALIZED RATIO 1.1 RATIO
[2017-12-07 09:32] LABS: BICARBONATE 23.9 MEQ/L (21.0-32.0); CALCIUM 8.4 MG/DL (8.5-10.1); CREATININE 1.52 MG/DL (0.60-1.30)
[2017-12-07] MEDS: cefTRIAXone INJ 1,000 MG in SODIUM CHLORIDE 0.9% INJ 100 ML IV SCH (13:53)
[2017-12-07] MEDS ORDERED: POTASSIUM CHLORIDE 10 MEQ CONTROLLED RELEASE TAB PO ONE (14:30)
--- NOTE | 2017-12-07 14:32 | HHI.FPPN ---
Subjective Remarks Patient seen and examined earlier today. No acute events overnight per nursing staff. Per report, patient continues to be slightly confused, but is oriented during interview. Nursing staff had discussion with family earlier in the day that reported that this is his baseline as they must assist him with multiple ADLs as he lives alone. Currently the patient's only complaint is a continued nonproductive cough, however he states that this is his baseline and it is not "that bad." Patient states that he would like to return home today as he needs to "see his cats and dogs." We discussed his urinary tract infection and the need for continued antibiotic treatment for a total of 10 days. We also discussed physical therapy's recommendation for rehabilitation. (Hitesh Clements MD R2) Objective Vitals Vital Signs Date Time Temp Pulse Resp B/P (MAP) Pulse Ox O2 Delivery O2 Flow Rate FiO2 12/07/17 12:31 98.2 72 20 100/49 (66) 97 12/07/17 08:00 85 12/07/17 07:39 98.3 79 18 152/69 (96) 97 12/07/17 04:00 67 12/06/17 23:59 72 12/06/17 23:09 98.4 73 20 137/62 (87) 98 12/06/17 22:46 66 18 130/61 (84) 95 12/06/17 19:59 98.7 74 22 115/57 (76) 95 12/06/17 16:15 98.2 68 20 152/55 (87) 96 I/O 12/06/17 12/06/17 12/06/17 12/07/17 12/07/17 12/07/17 07:00 15:00 23:00 07:00 15:00 23:00 Intake Total 320 ml 220 ml Output Total 400 ml Balance 320 ml -180 ml Intake Oral 320 ml 220 ml Output Urine Total 400 ml # Voids 2 2 # Bowel Movements 0 (Hitesh Clements MD R2) Result Diagram: 12/07/17 0800 12/07/17 0800 Objective Remarks GENERAL: Elderly male lying in bed in no acute distress currently watching television. SKIN: Cool and dry. No rash. Senile purpura. CABG surgical scars appreciated along the sternum. Pacemaker palpated in the left upper chest. HEENT: Atraumatic, normocephalic with extraocular motions intact. No rhinorrhea. No palpable LAD, JVD, or thyroid abnormality appreciated. CARDIOVASCULAR: Regular rate and rhythm without obvious murmurs, gallops, or rubs. 2+ pulses in all four extremities. RESPIRATORY: Clear to auscultation bilaterally with no crackles, wheezes, or rhonchi. No increased work of breathing. GASTROINTESTINAL: Abdomen soft, non-tender, nondistended with positive bowel sounds. No masses appreciated. MUSCULOSKELETAL: No cyanosis or edema. No calf tenderness. Ambulating without assistance per report. NEURO/PSYCH: Afocal. Awake, alert, and oriented x3. Normal speech. Patient able to recall most of his history, however does not remember myself from his admission or that his family had been to see him earlier as his nurse reported. (Hitesh Clements MD R2) A/P Assessment and Plan Mr. Mcleod is an 77-year-old male presenting with syncope secondary to UTI with dehydration. Discharge Planning Pending placement as physical therapy is recommending rehabilitation at SNF, however patient does not meet inpatient criteria at this time. Case management consulted for placement assistance. Multiple attempts made to contact patient's daughter, Hakeem Mcleod at , without success to discuss discharge planning. (Hitesh Clements MD R2) Problem List: (1) UTI (urinary tract infection) ICD Codes: N39.0 - Urinary tract infection, site not specified Status: Acute Plan: Patient presenting with presyncopal episode and fever found to have suspected UTI. Patient currently does not meet SIRS/sepsis criteria. On admission: -CBC: WBC 9.5 with 87% neutrophils -CMP: Creatinine 1.91 (baseline per chart review approximately 2.0), BUN 30, otherwise negative -UA: Hazy, small occult blood, large leukocyte esterase, 4 RBC, 118 WBC with rare bacteria -Blood cultures drawn after ceftriaxone administered: Negative to date -Urine culture: Pseudomonas, pansensitive Medications: -Patient given 500 mL normal saline bolus and ceftriaxone 1 g in ED -Continue ceftriaxone 1 g daily for UTI with fever (12/05-12/07) -Patient to start ciprofloxacin 500 mg twice daily for a total of 10 days. -Fluids discontinued as patient appears hydrated and is tolerating oral fluids well. (2) Syncope, near ICD Codes: R55 - Syncope and collapse Status: Acute Plan: Presyncope likely secondary to urinary tract infection as above. Patient also found to have orthostatic hypotension likely secondary to dehydration. -Head CT: No acute findings with cortical volume loss -CBC, CMP, UA as above -TSH 0.766 (within normal limits) -UDS: Negative -Orthostatic vital signs with a greater than 20 mmHg drop from supine to standing -Echocardiogram ordered -Carotid ultrasound ordered -MRI/MRA unable to be performed due to cardiac pacemaker Medications: -Normal saline at 40 mL/h as patient has history of CHF and is tolerating oral fluids (3) Renal insufficiency ICD Codes: N28.9 - Disorder of kidney and ureter, unspecified Status: Chronic Plan: Patient with history of renal insufficiency per chart review -CMP: Creatinine 1.91 (baseline approximately 2.0 per chart review) BUN 30, otherwise within normal limits -Continue to monitor with CMP/BMP -Monitor for nephrotoxic medications Labs: -Creatinine improved to 1.5 Medications: -Fluids discontinued as patient appears hydrated and is tolerating oral fluids well. (4) Thrombocytopenia ICD Codes: D69.6 - Thrombocytopenia, unspecified Status: Acute Plan: Patient with decreasing platelet count while on heparin, continue to monitor for possible early stages of HIT -Platelets on admission: 181 -Platelets 18: 133 Medications: -Continue heparin at this time as patient was low normal on admission, continue to monitor platelet count with low threshold to discontinue heparin for anticoagulation (5) History of carotid endarterectomy ICD Codes: Z98.890 - Other specified postprocedural states Status: Chronic Plan: Patient with history of left carotid endarterectomy -Repeat carotid ultrasound ordered (6) CAD (coronary artery disease) ICD Codes: I25.10 - Atherosclerotic heart disease of [place] coronary artery without angina pectoris Status: Chronic Plan: Patient with coronary artery disease S/P CABG with pacemaker in place -EKG: Ventricular paced rhythm of 78 bpm. No interval abnormalities. No acute ST elevation/depression's. (Per medical team read) -Echocardiogram ordered -Carotid ultrasound ordered Medications: -Continue home metoprolol, ramipril, and bumetanide (7) History of coronary artery bypass graft ICD Codes: Z95.1 - Presence of aortocoronary bypass graft Status: Chronic Plan: Patient with history of CABG -Please see plan as above review (8) BPH (benign prostatic hyperplasia) ICD Codes: N40.0 - Benign prostatic hyperplasia without lower urinary tract symptoms Status: Chronic Plan: Patient with history of BPH per chart review Medications: -Continue home tamsulosin (9) Nutrition, metabolism, and development symptoms ICD Codes: R63.8 - Other symptoms and signs concerning food and fluid intake Status: Acute Plan: -Fluids: Fluids discontinued as patient appears hydrated and is tolerating oral fluids well. -Diet: Heart healthy diet with salt and fluid restriction due to CHF -Electrolytes: Within normal limits, continue to monitor -Prophylaxis: Clonidine as needed for blood pressure greater than 180/110, DuoNeb's as needed for shortness of breath/wheezing, Zofran as needed for nausea /vomiting, Tylenol as needed for pain/headache, constipation protocol in place -Home medications: Medical team unaware of reason patient is on methylprednisolone daily. Medical team to attempt to contact family for further clarification. As patient states he takes this medication daily, we will continue at this time. (10) DVT prophylaxis Status: Acute Plan: -SCDs Medication: -Heparin 5000 units every 8 hours (Hitesh Clements MD R2) Problem List: (1) UTI (urinary tract infection) ICD Codes: N39.0 - Urinary tract infection, site not specified Status: Acute Plan: Patient presenting with presyncopal episode and fever found to have suspected UTI. Patient currently does not meet SIRS/sepsis criteria. On admission: -CBC: WBC 9.5 with 87% neutrophils -CMP: Creatinine 1.91 (baseline per chart review approximately 2.0), BUN 30, otherwise negative -UA: Hazy, small occult blood, large leukocyte esterase, 4 RBC, 118 WBC with rare bacteria -Blood cultures drawn after ceftriaxone administered: Negative to date -Urine culture: Pseudomonas, pansensitive Medications: -Patient given 500 mL normal saline bolus and ceftriaxone 1 g in ED -Continue ceftriaxone 1 g daily for UTI with fever (12/05-12/07) -Patient to start ciprofloxacin 500 mg twice daily for a total of 10 days. -Fluids discontinued as patient appears hydrated and is tolerating oral fluids well. (2) Syncope, near ICD Codes: R55 - Syncope and collapse Status: Acute Plan: Presyncope likely secondary to urinary tract infection as above. Patient also found to have orthostatic hypotension likely secondary to dehydration. -Head CT: No acute findings with cortical volume loss -CBC, CMP, UA as above -TSH 0.766 (within normal limits) -UDS: Negative -Orthostatic vital signs with a greater than 20 mmHg drop from supine to standing -Echocardiogram ordered -Carotid ultrasound ordered -MRI/MRA unable to be performed due to cardiac pacemaker Medications: -Normal saline at 40 mL/h as patient has history of CHF and is tolerating oral fluids (3) Renal insufficiency ICD Codes: N28.9 - Disorder of kidney and ureter, unspecified Status: Chronic Plan: Patient with history of renal insufficiency per chart review -CMP: Creatinine 1.91 (baseline approximately 2.0 per chart review) BUN 30, otherwise within normal limits -Continue to monitor with CMP/BMP -Monitor for nephrotoxic medications Labs: -Creatinine improved to 1.5 Medications: -Fluids discontinued as patient appears hydrated and is tolerating oral fluids well. (4) Thrombocytopenia ICD Codes: D69.6 - Thrombocytopenia, unspecified Status: Acute Plan: Patient with decreasing platelet count while on heparin, continue to monitor for possible early stages of HIT -Platelets on admission: 181 -Platelets 12/07: 133 Medications: -Continue heparin at this time as patient was low normal on admission, continue to monitor platelet count with low threshold to discontinue heparin for anticoagulation (5) History of carotid endarterectomy ICD Codes: Z98.890 - Other specified postprocedural states Status: Chronic Plan: Patient with history of left carotid endarterectomy -Repeat carotid ultrasound ordered (6) CAD (coronary artery disease) ICD Codes: I25.10 - Atherosclerotic heart disease of [place] coronary artery without angina pectoris Status: Chronic Plan: Patient with coronary artery disease S/P CABG with pacemaker in place -EKG: Ventricular paced rhythm of 78 bpm. No interval abnormalities. No acute ST elevation/depression's. (Per medical team read) -Echocardiogram ordered -Carotid ultrasound ordered Medications: -Continue home metoprolol, ramipril, and bumetanide (7) History of coronary artery bypass graft ICD Codes: Z95.1 - Presence of aortocoronary bypass graft Status: Chronic Plan: Patient with history of CABG -Please see plan as above review (8) BPH (benign prostatic hyperplasia) ICD Codes: N40.0 - Benign prostatic hyperplasia without lower urinary tract symptoms Status: Chronic Plan: Patient with history of BPH per chart review Medications: -Continue home tamsulosin (9) Nutrition, metabolism, and development symptoms ICD Codes: R63.8 - Other symptoms and signs concerning food and fluid intake Status: Acute Plan: -Fluids: Fluids discontinued as patient appears hydrated and is tolerating oral fluids well. -Diet: Heart healthy diet with salt and fluid restriction due to CHF -Electrolytes: Within normal limits, continue to monitor -Prophylaxis: Clonidine as needed for blood pressure greater than 180/110, DuoNeb's as needed for shortness of breath/wheezing, Zofran as needed for nausea /vomiting, Tylenol as needed for pain/headache, constipation protocol in place -Home medications: Medical team unaware of reason patient is on methylprednisolone daily. Medical team to attempt to contact family for further clarification. As patient states he takes this medication daily, we will continue at this time. (10) DVT prophylaxis Status: Acute Plan: -SCDs Medication: -Heparin 5000 units every 8 hours See the residents documentation for details. I saw and evaluated the patient regarding the friedman portions of this evaluation and agree with the residents findings and plans as written. Parts of this note were created using tok tok tok voice recognition software program. While efforts were made to correct any mistakes made by this software, some mistakes, errors, and omissions may remain in the final note that were not caught when the note was originally created. Plan of care was discussed and agreed upon with the patient as specifically documented in the above note. An opportunity to ask questions with explanation was provided. Patient voiced understanding on all information reviewed and discussed. (Jasper Cuello MD) Problem Qualifiers (1) UTI (urinary tract infection): Qualified Codes: N30.00 - Acute cystitis without hematuria (2) CAD (coronary artery disease): Qualified Codes: I25.810 - Atherosclerosis of coronary artery bypass graft(s) without angina pectoris (3) BPH (benign prostatic hyperplasia): Qualified Codes: N40.0 - Benign prostatic hyperplasia without lower urinary tract symptoms Hitesh Clements MD R2 Dec 07, 2017 14:32 Jasper Cuello MD Dec 10, 2017 10:40
[2017-12-08 00:52] VITALS: BP 115/59; PULSE 72; RESP 18; TEMP 98.2; O2SAT 96
[2017-12-08 04:00] VITALS: PULSE 69
[2017-12-08 04:34] VITALS: BP 121/58; PULSE 70; RESP 17; TEMP 98.4; O2SAT 96
[2017-12-08] MEDS: HEPARIN SODIUM - SQ 10,000 UNITS/ML VIAL SQ SCH (06:36)
[2017-12-08 07:29] LABS: HEMATOCRIT 38.1 % (39.0-51.0); MEAN CELL VOLUME 87.6 FL (80.0-100.0); MEAN CORPUSCULAR HEMOGLOBIN 29.9 PG (27.0-34.0); MEAN CORPUSCULAR HGB CONC 34.1 % (32.0-36.0); PLATELET COUNT 122 TH/MM3 (150-450); RED BLOOD COUNT 4.35 MIL/MM3 (4.50-5.90); WHITE BLOOD COUNT 4.6 TH/MM3 (4.0-11.0)
[2017-12-08 07:57] LABS: BICARBONATE 21.2 MEQ/L (21.0-32.0); CREATININE 1.47 MG/DL (0.60-1.30); MAGNESIUM 2.3 MG/DL (1.5-2.5)
[2017-12-08 08:33] VITALS: BP 108/58; PULSE 75; RESP 18; TEMP 97.6; O2SAT 97
[2017-12-08] MEDS: SODIUM CHLORIDE 0.9% FLUSH 10 ML FLUSH IV FLUSH SCH (08:57)
[2017-12-08] MEDS: BUMETANIDE 1 MG TAB PO SCH (08:57)
[2017-12-08] MEDS: methylPREDNISolone 4 MG TAB PO SCH (08:57)
[2017-12-08] MEDS: RAMIPRIL 2.5 MG CAP PO SCH (08:57)
[2017-12-08] MEDS: TAMSULOSIN HCL 0.4 MG CAP PO SCH (08:57)
[2017-12-08] MEDS: METOPROLOL TARTRATE 25 MG TAB PO SCH (08:57)
[2017-12-08] MEDS ORDERED: CIPROFLOXACIN 500 MG TAB PO SCH (09:00)
--- NOTE | 2017-12-08 09:23 | HHI.FPPN ---
Subjective Remarks Patient was seen and evaluated this morning. Daughter at bedside, who reports that patient is back to his mental baseline. Patient denies chest pain, heart palpitations, shortness of breath, nausea/vomiting, diarrhea and constipation. He denies confusion. He is eager to get out of bed and go home. He will be staying at his son's house for the first few days until completely recovered from hospitalization. All questions were answered. (Danielle Jaeger MD R1) Objective Vitals Vital Signs Date Time Temp Pulse Resp B/P (MAP) Pulse Ox O2 Delivery O2 Flow Rate FiO2 12/08/17 08:33 97.6 75 18 108/58 (75) 97 12/08/17 04:34 98.4 70 17 121/58 (79) 96 12/08/17 04:00 69 12/08/17 00:52 98.2 72 18 115/59 (77) 96 12/07/17 23:59 63 12/07/17 22:13 97 12/07/17 20:00 70 12/07/17 19:51 99.8 68 17 137/65 (89) 96 12/07/17 16:43 75 12/07/17 15:57 98.2 72 18 129/60 (83) 98 12/07/17 12:31 98.2 72 20 100/49 (66) 97 I/O 12/07/17 12/07/17 12/07/17 12/08/17 12/08/17 12/08/17 07:00 15:00 23:00 07:00 15:00 23:00 Intake Total 220 ml 1000 ml 100 ml Output Total 400 ml 400 ml Balance -180 ml 1000 ml 100 ml -400 ml Intake Oral 220 ml IV Total 1000 ml 100 ml Output Urine Total 400 ml 400 ml # Voids 2 (Danielle Jaeger MD R1) Result Diagram: 12/08/17 0620 12/08/17 0620 Imaging Last Impressions Carotid Artery Ultrasound 12/06/17 0000 Signed Impressions: CONCLUSION: 1. Right Internal Carotid Artery: Findings indicate <50% stenosis. 2. Left Internal Carotid Artery: Findings indicate <50% stenosis. Head CT 12/05/17 1254 Signed Impressions: CONCLUSION: 1. No acute findings. Cortical volume loss. Chest X-Ray 12/05/17 1254 Signed Impressions: CONCLUSION: Minimal basilar atelectasis or scarring. Objective Remarks GENERAL: Elderly male lying in bed in no acute distress. SKIN: Cool and dry. No rash. Senile purpura. CABG surgical scars appreciated along the sternum. Pacemaker palpated in the left upper chest. HEENT: Atraumatic, normocephalic with extraocular motions intact. No rhinorrhea. No palpable LAD, JVD, or thyroid abnormality appreciated. CARDIOVASCULAR: Regular rate and rhythm without obvious murmurs, gallops, or rubs. RESPIRATORY: No increased work of breathing. Clear to auscultation bilaterally with no crackles, wheezes, or rhonchi. GASTROINTESTINAL: Positive bowel sounds. Abdomen soft, non-tender, nondistended. No masses appreciated. MUSCULOSKELETAL: No cyanosis or edema. No calf tenderness. NEURO/PSYCH: Awake, alert, and oriented x3. Normal speech. Medications and IVs Current Medications Medications (Trade) Dose Ordered Sig/Bessy Route Start Time Stop Time Status Last Admin (NS Flush) 2 ml UNSCH PRN IV FLUSH 12/05/17 15:30 (NS Flush) 2 ml BID IV FLUSH 12/05/17 21:00 12/08/17 08:57 (Zofran Odt) 4 mg Q6H PRN PO 12/05/17 16:00 (Heparin Inj) 5,000 units Q8HR SQ 12/05/17 16:00 12/08/17 06:36 (Tylenol) 650 mg Q6H PRN PO 12/05/17 15:30 (Ilsa-Colace) 1 tab BID PRN PO 12/05/17 15:30 (Milk Of Magnesia Liq) 30 ml Q12H PRN PO 12/05/17 15:30 (Senokot) 17.2 mg Q12H PRN PO 12/05/17 15:30 (Dulcolax Supp) 10 mg DAILY PRN RECTAL 12/05/17 15:30 (Bumetanide) 1 mg DAILY PO 12/06/17 09:00 12/08/17 08:57 (Medrol) 4 mg DAILY PO 12/06/17 09:00 12/08/17 08:57 (Lopressor) 75 mg BID PO 12/05/17 21:00 12/07/17 21:13 (Altace) 2.5 mg DAILY PO 12/06/17 09:00 12/08/17 08:57 (Flomax) 0.4 mg DAILY PO 12/06/17 09:00 12/08/17 08:57 (Catapres) 0.1 mg Q6H PRN PO 12/05/17 17:30 (Duoneb Neb) 1 ampule Q4HR NEB PRN NEB 12/05/17 17:30 (Cipro) 500 mg Q12HR PO 12/08/17 09:00 12/15/17 08:59 12/08/17 08:57 (Danielle Jaeger MD R1) Urinary Catheter: No (Danielle Jaeger MD R1) Vascular Central Line Catheter: No (Danielle Jaeger MD R1) A/P Assessment and Plan Patient is an 77-year-old male presenting with syncope secondary to UTI with dehydration. Discharge Planning Today. Case Management to arrange home healthcare at time of discharge. (Danielle Jaeger MD R1) Problem List: (1) UTI (urinary tract infection) ICD Codes: N39.0 - Urinary tract infection, site not specified Status: Acute Plan: Patient presenting with presyncopal episode and fever found to have UTI. Patient does not meet SIRS/sepsis criteria. On admission: * CBC: WBC 9.5 with 87% neutrophils. * CMP: Creatinine 1.91 (baseline per chart review approximately 2.0), BUN 30, otherwise negative. * UA: Hazy, small occult blood, large leukocyte esterase, 4 RBC, 118 WBC with rare bacteria. * Blood cultures drawn after ceftriaxone administered: Negative to date. * Urine culture: Pseudomonas, pansensitive. Medications: * Patient given 500 mL normal saline bolus and ceftriaxone 1 g in ED. * Continue ceftriaxone 1 g daily for UTI with fever (12/05-12/07). * Patient to start ciprofloxacin 500 mg twice daily for a total of 10 days. (2) Syncope, near ICD Codes: R55 - Syncope and collapse Status: Acute Plan: Presyncope likely secondary to urinary tract infection as above. Patient also found to have orthostatic hypotension likely secondary to dehydration. On admission: * CBC, CMP, UA as above. * TSH 0.766 (within normal limits). * UDS: Negative * Head CT: No acute findings with cortical volume loss. * Carotid ultrasound: Right Internal Carotid Artery: Findings indicate <50% stenosis. Left Internal Carotid Artery: Findings indicate <50% stenosis. * Echocardiogram pending. * MRI/MRA unable to be performed due to cardiac pacemaker. * Orthostatic vital signs with a greater than 20 mmHg drop from supine to standing. Medications: * IVF hydration for first two days of hospitalization. (3) Renal insufficiency ICD Codes: N28.9 - Disorder of kidney and ureter, unspecified Status: Chronic Plan: Patient with history of renal insufficiency per chart review. On admission: * CMP: Creatinine 1.91 (baseline 2.0 per chart review) BUN 30, otherwise within normal limits. Labs 12/08: * Creatinine improved to 1.47. Orders: * Continue to monitor with CMP/BMP * Monitor for nephrotoxic medications Medications: * Fluids discontinued on 12/07 as patient appears hydrated and is tolerating oral fluids well. (4) Thrombocytopenia ICD Codes: D69.6 - Thrombocytopenia, unspecified Status: Acute Plan: Patient with decreasing platelet count while on heparin, continue to monitor for possible early stages of HIT. Labs: * Platelets on admission: 181. * Platelets 12/08: 122L. Medications: * Heparin discontinued 12/08; platelet count continues to downtrend. May consider HIT work-up. (5) Physical deconditioning ICD Codes: R53.81 - Other malaise Status: Chronic Plan: Patient with physical deconditioning. Recent gradual decline per daughter. Consult: * Physical Therapy: PT AT [facility] RECOMMENDED DUE TO COGNITIVE AND BALANCE DEFICITS. PT LIVES ALONE. IF FAMILY ABLE TO ARRANGE ASSIST AT D/C FOR PT TO HAVE AT HOME, MAY BE CANDIDATE FOR HOME HEALTH CARE PHYSICAL THERAPY. (6) History of carotid endarterectomy ICD Codes: Z98.890 - Other specified postprocedural states Status: Chronic Plan: Patient with history of left carotid endarterectomy. * Carotid US during this hospitalization - see above. (7) CAD (coronary artery disease) ICD Codes: I25.10 - Atherosclerotic heart disease of [place] coronary artery without angina pectoris Status: Chronic Plan: Patient with coronary artery disease s/p CABG with pacemaker in place. On admission: * EKG: Ventricular paced rhythm of 78 bpm. No interval abnormalities. No acute ST elevation/depression's. (Per medical team read). * Carotid ultrasound: Right Internal Carotid Artery: Findings indicate <50% stenosis. Left Internal Carotid Artery: Findings indicate <50% stenosis. * Echocardiogram pending. Medications: * Continue home metoprolol, ramipril, and bumetanide. (8) History of coronary artery bypass graft ICD Codes: Z95.1 - Presence of aortocoronary bypass graft Status: Chronic Plan: Patient with history of CABG. * See Plan above for CAD. (9) BPH (benign prostatic hyperplasia) ICD Codes: N40.0 - Benign prostatic hyperplasia without lower urinary tract symptoms Status: Chronic Plan: Patient with history of BPH per chart review. Medications: * Continue home tamsulosin. (10) Nutrition, metabolism, and development symptoms ICD Codes: R63.8 - Other symptoms and signs concerning food and fluid intake Status: Acute Plan: Fluids: * Fluids discontinued as patient appears hydrated and is tolerating oral fluids well. Diet: * Heart healthy diet with salt and fluid restriction due to CHF. Electrolytes: * Monitor and replete as necessary. (11) DVT prophylaxis Status: Acute Plan: SCDs. Heparin discontinued 12/08; platelet count continues to downtrend. May consider HIT work-up. (Danielle Jaeger MD R1) Problem List: (1) UTI (urinary tract infection) ICD Codes: N39.0 - Urinary tract infection, site not specified Status: Acute Plan: Patient presenting with presyncopal episode and fever found to have UTI. Patient does not meet SIRS/sepsis criteria. On admission: * CBC: WBC 9.5 with 87% neutrophils. * CMP: Creatinine 1.91 (baseline per chart review approximately 2.0), BUN 30, otherwise negative. * UA: Hazy, small occult blood, large leukocyte esterase, 4 RBC, 118 WBC with rare bacteria. * Blood cultures drawn after ceftriaxone administered: Negative to date. * Urine culture: Pseudomonas, pansensitive. Medications: * Patient given 500 mL normal saline bolus and ceftriaxone 1 g in ED. * Continue ceftriaxone 1 g daily for UTI with fever (12/05-12/07). * Patient to start ciprofloxacin 500 mg twice daily for a total of 10 days. (2) Syncope, near ICD Codes: R55 - Syncope and collapse Status: Acute Plan: Presyncope likely secondary to urinary tract infection as above. Patient also found to have orthostatic hypotension likely secondary to dehydration. On admission: * CBC, CMP, UA as above. * TSH 0.766 (within normal limits). * UDS: Negative * Head CT: No acute findings with cortical volume loss. * Carotid ultrasound: Right Internal Carotid Artery: Findings indicate <50% stenosis. Left Internal Carotid Artery: Findings indicate <50% stenosis. * Echocardiogram pending. * MRI/MRA unable to be performed due to cardiac pacemaker. * Orthostatic vital signs with a greater than 20 mmHg drop from supine to standing. Medications: * IVF hydration for first two days of hospitalization. (3) Renal insufficiency ICD Codes: N28.9 - Disorder of kidney and ureter, unspecified Status: Chronic Plan: Patient with history of renal insufficiency per chart review. On admission: * CMP: Creatinine 1.91 (baseline 2.0 per chart review) BUN 30, otherwise within normal limits. Labs 12/08: * Creatinine improved to 1.47. Orders: * Continue to monitor with CMP/BMP * Monitor for nephrotoxic medications Medications: * Fluids discontinued on 12/07 as patient appears hydrated and is tolerating oral fluids well. (4) Thrombocytopenia ICD Codes: D69.6 - Thrombocytopenia, unspecified Status: Acute Plan: Patient with decreasing platelet count while on heparin, continue to monitor for possible early stages of HIT. Labs: * Platelets on admission: 181. * Platelets 12/08: 122L. Medications: * Heparin discontinued 12/08; platelet count continues to downtrend. May consider HIT work-up. (5) Physical deconditioning ICD Codes: R53.81 - Other malaise Status: Chronic Plan: Patient with physical deconditioning. Recent gradual decline per daughter. Consult: * Physical Therapy: PT AT [facility] RECOMMENDED DUE TO COGNITIVE AND BALANCE DEFICITS. PT LIVES ALONE. IF FAMILY ABLE TO ARRANGE ASSIST AT D/C FOR PT TO HAVE AT HOME, MAY BE CANDIDATE FOR HOME HEALTH CARE PHYSICAL THERAPY. (6) History of carotid endarterectomy ICD Codes: Z98.890 - Other specified postprocedural states Status: Chronic Plan: Patient with history of left carotid endarterectomy. * Carotid US during this hospitalization - see above. (7) CAD (coronary artery disease) ICD Codes: I25.10 - Atherosclerotic heart disease of [place] coronary artery without angina pectoris Status: Chronic Plan: Patient with coronary artery disease s/p CABG with pacemaker in place. On admission: * EKG: Ventricular paced rhythm of 78 bpm. No interval abnormalities. No acute ST elevation/depression's. (Per medical team read). * Carotid ultrasound: Right Internal Carotid Artery: Findings indicate <50% stenosis. Left Internal Carotid Artery: Findings indicate <50% stenosis. * Echocardiogram pending. Medications: * Continue home metoprolol, ramipril, and bumetanide. (8) History of coronary artery bypass graft ICD Codes: Z95.1 - Presence of aortocoronary bypass graft Status: Chronic Plan: Patient with history of CABG. * See Plan above for CAD. (9) BPH (benign prostatic hyperplasia) ICD Codes: N40.0 - Benign prostatic hyperplasia without lower urinary tract symptoms Status: Chronic Plan: Patient with history of BPH per chart review. Medications: * Continue home tamsulosin. (10) Nutrition, metabolism, and development symptoms ICD Codes: R63.8 - Other symptoms and signs concerning food and fluid intake Status: Acute Plan: Fluids: * Fluids discontinued as patient appears hydrated and is tolerating oral fluids well. Diet: * Heart healthy diet with salt and fluid restriction due to CHF. Electrolytes: * Monitor and replete as necessary. (11) DVT prophylaxis Status: Acute Plan: SCDs. Heparin discontinued 12/08; platelet count continues to downtrend. May consider HIT work-up. See the residents documentation for details. I saw and evaluated the patient regarding the friedman portions of this evaluation and agree with the residents findings and plans as written. Parts of this note were created using [facility] voice recognition software program. While efforts were made to correct any mistakes made by this software, some mistakes, errors, and omissions may remain in the final note that were not caught when the note was originally created. Plan of care was discussed and agreed upon with the patient as specifically documented in the above note. An opportunity to ask questions with explanation was provided. Patient voiced understanding on all information reviewed and discussed. (Jasper Cuello MD) Problem Qualifiers (1) UTI (urinary tract infection): Qualified Codes: N30.00 - Acute cystitis without hematuria (2) CAD (coronary artery disease): Qualified Codes: I25.810 - Atherosclerosis of coronary artery bypass graft(s) without angina pectoris (3) BPH (benign prostatic hyperplasia): Qualified Codes: N40.0 - Benign prostatic hyperplasia without lower urinary tract symptoms Danielle Jaeger MD R1 Dec 08, 2017 09:23 Jasper Cuello MD Dec 10, 2017 10:42
--- NOTE | 2017-12-08 09:27 | HHI.FF ---
Face to Face Verification Diagnosis: (1) Altered mental status (2) UTI (urinary tract infection) (3) Physical deconditioning Physical Therapy Order: Evaluate and Treat, Improve ambulation, Strength and gait training Home Health Nursing Order: Signs/symptoms of disease process Medication education-adverse effect Nursing assessment with vital signs I have seen patient Shlomo Mcleod on 12/08/17. My clinical findings support the need for the requested home health care services because: Ltd mobility - disease progression Patient has SOB Deconditioned w/ increased weakness Med compliance is questionable Limited ability to care for self Impaired cognition/judgement High risk of falls Infection w/ risk of complications I certify that my clinical findings support that this patient is homebound because: Impaired cognitive ability/safety Unsteady gait/balance Unsafe to leave home unassisted Poor cardiac reserve Hitesh Clements MD R2 Dec 08, 2017 09:27
[2017-12-08] MEDS ORDERED: CIPR-9 PO (09:29)
[2017-12-08 12:36] VITALS: BP 111/56; PULSE 72; RESP 18; TEMP 98.9; O2SAT 96
--- NOTE | 2017-12-08 12:51 | HHI.DS ---
Discharge Summary Admission Date Dec 05, 2017 at 14:56 Discharge Date: Dec 08, 2017 Admitting Diagnosis acute syncope, UTI (1) UTI (urinary tract infection) Diagnosis: Principal Plan: Patient presenting with presyncopal episode and fever found to have UTI. Patient does not meet SIRS/sepsis criteria. On admission: * CBC: WBC 9.5 with 87% neutrophils. * CMP: Creatinine 1.91 (baseline per chart review approximately 2.0), BUN 30, otherwise negative. * UA: Hazy, small occult blood, large leukocyte esterase, 4 RBC, 118 WBC with rare bacteria. * Blood cultures drawn after ceftriaxone administered: Negative to date. * Urine culture: Pseudomonas, pansensitive. Medications: * Patient given 500 mL normal saline bolus and ceftriaxone 1 g in ED. * Continue ceftriaxone 1 g daily for UTI with fever (12/05-12/07). * Patient to start ciprofloxacin 500 mg twice daily for a total of 10 days. ICD Codes: N39.0 - Urinary tract infection, site not specified Status: Acute (2) Syncope, near Diagnosis: Principal Plan: Presyncope likely secondary to urinary tract infection as above. Patient also found to have orthostatic hypotension likely secondary to dehydration. On admission: * CBC, CMP, UA as above. * TSH 0.766 (within normal limits). * UDS: Negative * Head CT: No acute findings with cortical volume loss. * Carotid ultrasound: Right Internal Carotid Artery: Findings indicate <50% stenosis. Left Internal Carotid Artery: Findings indicate <50% stenosis. * Echocardiogram pending. * MRI/MRA unable to be performed due to cardiac pacemaker. * Orthostatic vital signs with a greater than 20 mmHg drop from supine to standing. Medications: * IVF hydration for first two days of hospitalization. ICD Codes: R55 - Syncope and collapse Status: Acute (3) Renal insufficiency Diagnosis: Secondary Plan: Patient with history of renal insufficiency per chart review. On admission: * CMP: Creatinine 1.91 (baseline 2.0 per chart review) BUN 30, otherwise within normal limits. Labs 12/08: * Creatinine improved to 1.47. Orders: * Continue to monitor with CMP/BMP * Monitor for nephrotoxic medications Medications: * Fluids discontinued on 12/07 as patient appears hydrated and is tolerating oral fluids well. ICD Codes: N28.9 - Disorder of kidney and ureter, unspecified Status: Chronic (4) Thrombocytopenia Diagnosis: Secondary Plan: Patient with decreasing platelet count while on heparin, continue to monitor for possible early stages of HIT. Labs: * Platelets on admission: 181. * Platelets 12/08: 122L. Medications: * Heparin discontinued 12/08; platelet count continues to downtrend. May consider HIT work-up. ICD Codes: D69.6 - Thrombocytopenia, unspecified Status: Acute (5) Physical deconditioning Diagnosis: Secondary Plan: Patient with physical deconditioning. Recent gradual decline per daughter. Consult: * Physical Therapy: PT AT [facility] RECOMMENDED DUE TO COGNITIVE AND BALANCE DEFICITS. PT LIVES ALONE. IF FAMILY ABLE TO ARRANGE ASSIST AT D/C FOR PT TO HAVE AT HOME, MAY BE CANDIDATE FOR HOME HEALTH CARE PHYSICAL THERAPY. ICD Codes: R53.81 - Other malaise Status: Chronic (6) History of carotid endarterectomy Diagnosis: Secondary Plan: Patient with history of left carotid endarterectomy. * Carotid US during this hospitalization - see above. ICD Codes: Z98.890 - Other specified postprocedural states Status: Chronic (7) CAD (coronary artery disease) Diagnosis: Secondary Plan: Patient with coronary artery disease s/p CABG with pacemaker in place. On admission: * EKG: Ventricular paced rhythm of 78 bpm. No interval abnormalities. No acute ST elevation/depression's. (Per medical team read). * Carotid ultrasound: Right Internal Carotid Artery: Findings indicate <50% stenosis. Left Internal Carotid Artery: Findings indicate <50% stenosis. * Echocardiogram pending. Medications: * Continue home metoprolol, ramipril, and bumetanide. ICD Codes: I25.10 - Atherosclerotic heart disease of [place] coronary artery without angina pectoris Status: Chronic (8) History of coronary artery bypass graft Diagnosis: Secondary Plan: Patient with history of CABG. * See Plan above for CAD. ICD Codes: Z95.1 - Presence of aortocoronary bypass graft Status: Chronic (9) BPH (benign prostatic hyperplasia) Diagnosis: Secondary Plan: Patient with history of BPH per chart review. Medications: * Continue home tamsulosin. ICD Codes: N40.0 - Benign prostatic hyperplasia without lower urinary tract symptoms Status: Chronic (10) Nutrition, metabolism, and development symptoms Diagnosis: Principal Plan: Fluids: * Fluids discontinued as patient appears hydrated and is tolerating oral fluids well. Diet: * Heart healthy diet with salt and fluid restriction due to CHF. Electrolytes: * Monitor and replete as necessary. ICD Codes: R63.8 - Other symptoms and signs concerning food and fluid intake Status: Acute (11) DVT prophylaxis Diagnosis: Principal Plan: SCDs. Heparin discontinued 12/08; platelet count continues to downtrend. May consider HIT work-up. Status: Acute Brief History Mr. Mcleod is a 77-year-old male presenting to the ED after syncopal event. Patient reports that he was walking from his kitchen to sit down in his living room when he became very dizzy. He then fell forward onto his knees and his outstretched arms catching himself on a chair without losing consciousness. He then will slowly lowered himself to the ground and was lying on his stomach with full consciousness. He was with his family who saw the event and immediately called 911 after they were unable to lift him to get into a chair. Patient reports no loss consciousness or residual pain from his fall and his arms/knees/head. Patient states that he is felt dizzy over the last 2-3 days with intermittent chills. Patient does have a history of CHF, CAD with CABG, and carotid disease per chart review. He has no other acute complaints at this time. Patient states he has been compliant with his medications. His PCP per chart review is Dr. Morris. Of note, patient presenting with granddaughter who is unaware of specifics of his past medical history. However, she does report that her family checks on him daily as he lives alone. They assist him with some of his ADLs including finances, grocery shopping, and surveying his medication intake. He was having chills but no fevers. He is very weak and has had some confusion related to his UTI. His pacemaker was interrogated and he had no ventricular arrythmias or shocking during his episode. CBC/BMP: 12/08/17 0620 12/08/17 0620 Significant Findings Laboratory Tests Test 12/05/17 13:20 12/05/17 19:25 12/06/17 01:11 12/06/17 06:30 Neutrophils (%) (Auto) 87.4 % (16.0-70.0) 79.3 % (16.0-70.0) Lymphocytes (%) (Auto) 5.4 % (9.0-44.0) Neutrophils # (Auto) 8.3 TH/MM3 (1.8-7.7) Lymphocytes # (Auto) 0.5 TH/MM3 (1.0-4.8) Activated Partial Thromboplast Time 23.2 SEC (24.3-30.1) Urine Turbidity HAZY (CLEAR) Urine Occult Blood SMALL (NEG) Urine Leukocyte Esterase LARGE (NEG) Urine RBC 4 /hpf (0-3) Urine WBC 118 /hpf (0-5) Urine Bacteria RARE /hpf (NONE) Blood Urea Nitrogen 30 MG/DL (7-18) 22 MG/DL (7-18) Creatinine 1.91 MG/DL (0.60-1.30) 1.59 MG/DL (0.60-1.30) Random Glucose 107 MG/DL (74-106) 107 MG/DL (74-106) Albumin 3.2 GM/DL (3.4-5.0) 3.0 GM/DL (3.4-5.0) Calcium Level 8.3 MG/DL (8.5-10.1) 8.3 MG/DL (8.5-10.1) Estimat Glomerular Filtration Rate 34 ML/MIN (>89) 42 ML/MIN (>89) Troponin I LESS THAN 0.02 NG/ML LESS THAN 0.02 NG/ML LESS THAN 0.02 NG/ML B-Type Natriuretic Peptide 266 PG/ML (0-100) Platelet Count 141 TH/MM3 (150-450) Aspartate Amino Transf (AST/SGOT) 39 U/L (15-37) Chloride Level 108 MEQ/L (98-107) Triglycerides Level 202 MG/DL (42-150) LDL Cholesterol 111 MG/DL (0-99) HDL Cholesterol 35.5 MG/DL (40.0-60.0) Test 12/07/17 08:00 12/08/17 06:20 Platelet Count 133 TH/MM3 (150-450) 122 TH/MM3 (150-450) Blood Urea Nitrogen 20 MG/DL (7-18) 23 MG/DL (7-18) Creatinine 1.52 MG/DL (0.60-1.30) 1.47 MG/DL (0.60-1.30) Calcium Level 8.4 MG/DL (8.5-10.1) 8.0 MG/DL (8.5-10.1) Potassium Level 3.3 MEQ/L (3.5-5.1) Estimat Glomerular Filtration Rate 45 ML/MIN (>89) 46 ML/MIN (>89) Red Blood Count 4.35 MIL/MM3 (4.50-5.90) Hematocrit 38.1 % (39.0-51.0) PE at Discharge GENERAL: Elderly male lying in bed in no acute distress. SKIN: Cool and dry. No rash. Senile purpura. CABG surgical scars appreciated along the sternum. Pacemaker palpated in the left upper chest. HEENT: Atraumatic, normocephalic with extraocular motions intact. No rhinorrhea. No palpable LAD, JVD, or thyroid abnormality appreciated. CARDIOVASCULAR: Regular rate and rhythm without obvious murmurs, gallops, or rubs. RESPIRATORY: No increased work of breathing. Clear to auscultation bilaterally with no crackles, wheezes, or rhonchi. GASTROINTESTINAL: Positive bowel sounds. Abdomen soft, non-tender, nondistended. No masses appreciated. MUSCULOSKELETAL: No cyanosis or edema. No calf tenderness. NEURO/PSYCH: Awake, alert, and oriented x3. Normal speech. Hospital Course Patient was admitted for presyncopal event likely related to UTI. Admission UA concerning for possible UTI and patient was started on ceftriaxone daily. Urine culture grew Pseudomonas that was pansensitive to antibiotics. Patient progressed well through hospitalization with improving neuro status to his baseline per his family's report. For his UTI he was discharged home on ciprofloxacin 500 mg twice daily for a total of 14 days of antibiotic treatment. Patient to follow-up with his PCP within 1 week as well as a follow- up UA with culture if necessary in approximately 1 month after treatment. Patient's syncope evaluation was negative as his laboratory evaluations, head CT , carotid ultrasound, and echocardiogram show no other cause for syncope symptoms. Patient was evaluated by physical therapy who recommended physical therapy at rehab, however his family decided at this time for him to be discharged home with home health PT as they are able to assist with his care. Patient was discharged home on 12/08/17 with orders for home health PT. Patient was to complete ciprofloxacin 500 mg twice a day and continue all other home medications at this time. He was given orders for repeat CMP and urinalysis in 1 month with PCP follow-up. Pt Condition on Discharge: Stable Discharge Disposition: Discharge Home Discharge Instructions DIET: Follow Instructions for: As Tolerated, No Restrictions, Heart Healthy Diet Activities you can perform: Regular-No Restrictions Other Activity Instructions: Patient ordered Home Health PT and Nursing Follow up Referrals: PCP Follow-up - 3-5 Days New Orders: COMP MET PROF (CMP) - 1 Month UA C+S IF INDICATED - 1 Month New Medications: Ciprofloxacin (Cipro) 500 Mg Tab 500 MG PO Q12HR, #14 TAB Continued Medications: Bumetanide (Bumetanide) 1 Mg Tab 1 MG PO DAILY, #30 TAB 0 Refills Methylprednisolone (Medrol) 4 Mg Tab 4 MG PO DAILY, TAB 0 Refills Metoprolol Tartrate (Metoprolol Tartrate) 25 Mg Tab 75 MG PO BID, #60 TAB 0 Refills Ramipril (Ramipril) 2.5 Mg Cap 2.5 MG PO DAILY, #30 CAP 0 Refills Tamsulosin (Tamsulosin) 0.4 Mg Cap 0.4 MG PO DAILY for Manage Prostate Problems, #30 CAP 0 Refills Hitesh Clements MD R2 Dec 08, 2017 12:51
--- NOTE | 2017-12-08 19:58 | ECHRPT ---
Indication: HEART FAILURE CONCLUSIONS Normal left ventricular size. Wall thickness is normal. The left ventricular systolic function is low normal with an estimated ejection fraction in the rang e of 50% Mitral annular calcification is present. Trace mitral valve regurgitation. Aortic valve sclerosis is present. Trace aortic valve regurgitation. There is estimated mild pulmonary hypertension present (40 mmHg). BP: / HR: Rhythm: MEASUREMENTS (Male / Female) Normal Values Technical Quality: 2D ECHO LV Diastolic Diameter PLAX 4.8 cm 4.2 - 5.9 / 3.9 - 5.3 cm LV Systolic Diameter PLAX 3.3 cm IVS Diastolic Thickness 1.0 cm 0.6 - 1.0 / 0.6 - 0.9 cm LVPW Diastolic Thickness 0.9 cm 0.6 - 1.0 / 0.6 - 0.9 cm LV Relative Wall Thickness 0.4 M-MODE Aortic Root Diameter MM 3.4 cm AV Cusp Separation MM 2.0 cm DOPPLER Mitral E Point Velocity 67.9 cm/s Mitral A Point Velocity 112.0 cm/s Mitral E to A Ratio 0.6 TR Peak Velocity 274.0 cm/s TR Peak Gradient 30.0 mmHg Right Atrial Pressure 10.0 mmHg Pulmonary Artery Systolic Pressu 40.0 mmHg Right Ventricular Systolic Press 40.0 mmHg FINDINGS LEFT VENTRICLE Normal left ventricular size. Wall thickness is normal. The left ventricular systolic function is low normal with an estimated ejection fraction in the rang e of 50% RIGHT VENTRICLE A pacemaker wire is noted. LEFT ATRIUM The left atrial size is normal. RIGHT ATRIUM The right atrial size is normal. ATRIAL SEPTUM Normal atrial septal thickness without atrial level shunting by limited color doppler interrogation. AORTA The aortic root and proximal ascending aorta are normal in size on limited imaging. MITRAL VALVE Mitral annular calcification is present. Trace mitral valve regurgitation. AORTIC VALVE Aortic valve sclerosis is present. Trace aortic valve regurgitation. TRICUSPID VALVE There is estimated mild pulmonary hypertension present ( 40 mmHg). PULMONARY VALVE No pulmonary valve regurgitation or stenosis. VESSELS The inferior vena cava is normal in size. PERICARDIUM No pericardial effusion. Norman Grey MD, FACC (Electronically Signed) Final Date:08 December 2017 19:56
--- NOTE | 2017-12-13 13:41 | HHI.DCPOC ---
Discharge Care Plan Diagnosis: (1) Altered mental status Goals to Promote Your Health * To prevent worsening of your condition and complications * To maintain your health at the optimal level Directions to Meet Your Goals Take your medications as prescribed Follow your dietary instruction Follow activity as directed Keep your appointments as scheduled Take your immunizations and boosters as scheduled If your symptoms worsen call your PCP, if no PCP go to Urgent Care Center or Emergency Room Smoking is Dangerous to Your Health. Avoid second hand smoke Call the 24-hour hour crisis hotline for domestic abuse at Hitesh Clements MD R2 Dec 13, 2017 13:41
== END 2017-12-08 15:51 | disposition home or self-care (01) ==
LOC: NEPC 12:44 → NEDA 14:56 → NEPHCDU 16:55
PROVIDERS: ADMIT Family Medicine; ATTEND Family Medicine
DX: I95.1 Orthostatic hypotension (principal); R53.1 Weakness; R42 Dizziness and giddiness; Z79.01 Long term (current) use of anticoagulants; I25.10 Atherosclerotic heart disease of native coronary artery without angina pectoris; M19.90 Unspecified osteoarthritis, unspecified site; E78.00 Pure hypercholesterolemia, unspecified; I50.9 Heart failure, unspecified; I11.0 Hypertensive heart disease with heart failure; N17.9 Acute kidney failure, unspecified; Z95.0 Presence of cardiac pacemaker; N30.01 Acute cystitis with hematuria; B96.5 Pseudomonas (aeruginosa) (mallei) (pseudomallei) as the cause of diseases classified elsewhere; J98.11 Atelectasis; I65.23 Occlusion and stenosis of bilateral carotid arteries; R94.31 Abnormal electrocardiogram [ECG] [EKG]; R05 Cough; E86.0 Dehydration; N28.9 Disorder of kidney and ureter, unspecified; D69.6 Thrombocytopenia, unspecified; R53.81 Other malaise; Z98.890 Other specified postprocedural states; N40.0 Benign prostatic hyperplasia without lower urinary tract symptoms; Z79.899 Other long term (current) drug therapy
CPT/HCPCS: 70450; 71045; 80048; 80053; 80061; 80307; 81001; 82550; 83735; 83880; 84443; 84484; 85025; 85027; 85610; 85730; 87040; 87077; 87086; 87186; 93005; 93306; 93880; 96361; 96365; 96372; 96376; 97162; 97166; 99285; G0378; G8987; G8988; J0696; J1644; J7030; J7040; J7509